=== PATIENT | female | born 1990 | race Caucasian/White ===

== ENCOUNTER 2016-04-12 02:40 | Emergency (ER) | payer OTHER ==
[2016-04-12] MEDS ORDERED: ONDANSETRON 4MG/2ML VIAL (J2405) As Ordered ONE (03:12)
[2016-04-12 03:16] LABS: CONTROL LINE HCG INT CTR LINE PRESENT
[2016-04-12 03:24] LABS: ALBUMIN 3.5 GM/DL (3.2-5.2); ALBUMIN/GLOBULIN RATIO 0.88 (1.00-1.93); ALKALINE PHOSPHATASE 95 U/L (45-117); ALT/SGPT 15 U/L (12-78); ANION GAP 10 MEQ/L (8-16); AST/SGOT 10 U/L (15-37); BILIRUBIN,DIRECT < 0.1 MG/DL (0.0-0.2); BILIRUBIN,TOTAL 0.5 MG/DL (0.2-1.0); BLOOD UREA NITROGEN 11 MG/DL (7-18); CALCIUM LEVEL 8.5 MG/DL (8.5-10.1); CARBON DIOXIDE LEVEL 25 MEQ/L (21-32); CHLORIDE LEVEL 106 MEQ/L (98-107); CREATININE FOR GFR 0.77 MG/DL (0.55-1.02); GLOMERULAR FILTRATION RATE > 60.0 (>60); GLUCOSE, FASTING 145 MG/DL (70-105); POTASSIUM SERUM 3.4 MEQ/L (3.5-5.1); SODIUM LEVEL 141 MEQ/L (136-145); TOTAL PROTEIN 7.5 GM/DL (6.4-8.2)
[2016-04-12 03:37] LABS: BASO % 0.3 % (0.0-1.0); EOS # 0.2 K/mm3 (0.0-0.50); EOS % 1.2 % (0.0-3.0); LARGE UNSTAINED CELL # 0.2 K/mm3 (0.0-0.4); LARGE UNSTAINED CELL % 1.4 % (0.0-4.0); LYMPH # 2.5 K/mm3 (1.5-6.5); LYMPH % 18.8 % (24.0-44.0); MEAN CORPUSCULAR HEMOGLOBIN 28.4 pg (27.0-33.0); MEAN CORPUSCULAR HGB CONC 32.6 g/dl (32.0-36.5); MEAN CORPUSCULAR VOLUME 87.1 fl (80.0-96.0); MONO # 0.7 K/mm3 (0.0-0.8); MONO % 5.5 % (0.0-5.0); NEUTROPHILS # 9.1 K/mm3 (1.8-7.7); NEUTROPHILS % 72.9 % (36.0-66.0); PLATELET COUNT, AUTOMATED 288 k/mm3 (150-450); WHITE BLOOD COUNT 12.4 K/mm3 (4.0-10.0)
[2016-04-12] MEDS ORDERED: POTASSIUM CHL PWD 20 MEQ PACKET As Ordered ONE (06:00)
--- NOTE | 2016-04-12 06:00 | REPUSA ---
CLINICAL HISTORY: Abdominal pain. TECHNIQUE: Multiple axial, sagittal and coronal CT images were obtained through the abdomen and pelvi s without administration of oral or IV contrast material. COMMENTS: The liver is of uniform attenuation without mass or defect. There is no intra or extrahepatic biliary ductal dilatation. The spleen is normal. The gallbladder is within normal limits. The pancreas is of normal contour and attenuation characteristics. There is no evidence of adrenal mass. Nonobstructing renal stones with the largest measuring 3 mm. Within stomach. Fluid-filled bowels. The kidneys are normal in size, shape and configuration. No ureteral calculi are identified. There is no hydroureter or hydronephrosis. There is no evidence for appendicitis. There is no bowel wall thickening. No evidence for small or la rge bowel obstruction. There is no evidence of abdominal ascites or lymphadenopathy. There is no evidence of intrinsic or extrinsic bladder mass. There is no pelvic ascites or lymphadeno lucero. Diffuse thickening of the bladder. Images of the lung bases show no evidence of pleural or parenchymal mass. There are no pleural effusi ons. The bony structures are free of lytic or blastic lesions. IMPRESSION: Nonobstructing renal stones. Ileus versus gastroenteritis. Fluid-filled stomach and small bowels. Thickened bladder. Thank you for your kind referral of this patient.
--- NOTE | 2016-04-12 07:13 | EDDOCDS ---
Nurse's Notes [facility] Name: Zahida Orlando Age: 25 yrs Sex: Female : 1990 Arrival Date: 04/12/2016 Time: 02:40 Bed 15 Private MD: Jordi Barbosa Diagnosis: Nausea and vomiting;Diarrhea, unspecified Presentation: 04/12 02:45 Presenting complaint: Patient states: "I think I got sick in the chicken I ate at work cf2 yesterday". Patient with complaint of fever, nausea, vomiting, diarrhea, and suprapubic pain since yesterday. Presenting complaint: EMS states: Stable transport with complaint of nausea and vomiting. Risk factors: the patient reports no vaginal bleeding. Adult Sepsis Screening: The patient does not have new or worsening altered mentation. Patient's respiratory rate is less than 22. Systolic blood pressure is greater than 100. Patient has a qSOFA score of 0- Negative Sepsis Screen. Suicide/Homicide risk assessment- the patient denies having any suicidal and/or homicidal ideations and does not present with any other emotional, behavioral or mental health complaints. 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 Transition of care: patient was not received from another setting of care. 02:45 Acuity: EDWIGE Level 3 cf2 02:45 Method Of Arrival: Ambulance cf2 Triage Assessment: 02:48 General: Appears ill, uncomfortable, Behavior is appropriate for age, cooperative, cf2 Reports fever for 12-24 hours. Pain: Location: abdomen. Pt Declines HIV testing. The patient is triaged at the bedside. See Assessment in Nurses Notes section of ED record. Neurological: No deficits noted. EENT: No deficits noted. Cardiovascular: No deficits noted. Respiratory: No deficits noted. GI: Abdomen is flat, non- distended Bowel sounds present X 4 quads. Abd is soft Abd is tender to palpation in suprapubic area, right lower quadrant and left lower quadrant Reports diarrhea, nausea, vomiting, intolerance of food. : No deficits noted. Denies burning with urination. Derm: Skin is clammy, Skin is pale. Musculoskeletal: No deficits noted. Injury Description: No known injury. 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 Claritin 10 mg Oral tab 1 tab once daily 2. Singulair 10 mg Oral tab 1 tab once daily - PMHx: Seasonal Allergies; vasovagal syncope; - PSHx: Tubal ligation; - Social history: Smoking status: Patient states was never smoker of tobacco. Patient/guardian denies using alcohol, street drugs, IV drugs, Race: White, Ethnicity: Not or No barriers to communication noted, The patient speaks fluent [place] African, Speaks appropriately for age, Preferred Language: South African. - Family history: Not pertinent. - : The pt / caregiver states he / she is not on anticoagulants. Home medication list is obtained from the patient. - Exposure Risk Screening:: None identified. Screenin:52 Screening information is obtained from the patient. Fall risk: No risks identified. cf2 Assistance ADL's: requires no assistance with activities of daily living. Abuse/DV Screen: The patient / caregiver reports he/she is: not in a situation that causes fear, pain or injury. Nutritional screening: No deficits noted. Advance Directives: Further advance directive information is declined. home support is adequate. Assessment: 02:52 General: See triage note. GI: Abdomen is flat, non- distended Bowel sounds present X 4 cf2 quads. Abd is soft Abd is tender to palpation in suprapubic area, right lower quadrant and left lower quadrant. Vital Signs: 02:48 BP 126 / 69; Pulse 101; Resp 16; Temp 96.2; Pulse Ox 97% on R/A; Weight 90.72 kg; cf2 Height 5 ft. 4 in. (162.56 cm); Pain 7/10; 07:09 BP 122 / 61; Pulse 88; Resp 16; Temp 98.0; Pulse Ox 99% on R/A; Pain 3/10; cf2 02:48 Body Mass Index 34.33 (90.72 kg, 162.56 cm) cf2 Vitals: 02:48 Log In Time N/A - ambulance arrival. cf2 ED Course: 02:40 Patient visited by Paul Whalen PCA. kb5 02:40 Patient moved to Waiting kb5 02:41 Iris Wheatley,LEIF is Primary Nurse. kb5 02:41 Jordi Barbosa is Private Physician. kb5 02:41 Patient moved to 15 kb5 02:45 Primary Nurse role handed off by Iris Wheatley RN cf2 02:45 Asia Lopez,LEIF is Primary Nurse. cf2 02:45 Patient visited by Asia Lopez RN. cf2 02:48 Triage Initiated cf2 02:52 The patient / caregiver is instructed regarding the plan of care and ED course. Patient cf2 has correct armband on for positive identification. Placed in gown. Bed in low position. Call light in reach. Side rails up X 1. Side rails up X2. Door closed. Noise minimized. Visitors limited. Lights dimmed. Moved to private room. Head of bed elevated. Diet: Patient is NPO. 02:53 Inserted saline lock: 20 gauge in left antecubital area and blood collected. The kas2 patient tolerated the procedure well. No procedures done that require assistance. 02:56 Mikel Hansen MD is Attending Physician. br1 02:56 Patient visited by Asia Lopez RN. cf2 03:01 Patient visited by Mikel Hansen MD. br1 03:03 Patient visited by Asia Lopez RN. cf2 03:38 Patient visited by Asia Lopez RN. cf2 03:58 Patient visited by Asia Lopez RN. cf2 04:46 [facility] Payment Agreement was scanned into [employer] and attached to record. hs2 04:48 Patient name changed from Zahida\\S\\Mia\\S\\[place]\\S\\ to Azhida\\S\\Cecille\\S\\Johanny. EDMS 04:54 Patient visited by Asia Lopez RN. cf2 05:32 Patient visited by Asia Lopez RN. cf2 05:58 Patient visited by Asia Lopez RN. cf2 05:58 Patient visited by Asia Lopez RN. cf2 06:05 CT ABD & PELVIS: No Contrast Returned. EDMS 06:41 Patient visited by Asia Lopez RN. cf2 06:45 Patient visited by Asia Lopez RN. cf2 06:45 Diet: Patient given water. Tolerated well. cf2 06:52 Patient visited by Mikel Hansen MD. br1 06:54 Jordi Barbosa is Referral Physician. br1 07:03 Marta Diaz, RN is Primary Nurse. jc4 07:05 Susana Zamarripa,LEIF is Primary Nurse. ja5 07:09 Patient visited by Asia Lopez,LEIF. cf2 07:11 Discontinued lock. cf2 Administered Medications: 03:17 Drug: NS 0.9% 1000 ml [sodium chloride 0.9 % intravenous solution] Route: IV; Rate: cf2 bolus; Site: left antecubital; 07:10 Follow up: Response: Pain is decreased cf2 03:18 Drug: Ondansetron 4 mg [ondansetron HCl 2 mg/mL intravenous solution (2 mL)] Route: cf2 IVP; Site: left antecubital; 07:10 Follow up: Response: Pain is decreased cf2 05:33 Drug: Potassium Chloride 20 mEq [potassium chloride ER 10 mEq tablet,extended release cf2 (2 tabs)] Route: PO; 07:10 Follow up: Response: No significant change. cf2 Order Results: Lab Order: CBC with Diff; SPEC'M 04/12/16 02:52 Test: WHITE BLOOD COUNT; Value: 12.4; Range: 4.0-10.0; Abnormal: Above high normal; Units: K/mm3; Status: F Test: RED BLOOD COUNT; Value: 4.57; Range: 4.00-5.40; Units: M/mm3; Status: F Test: HEMOGLOBIN; Value: 13.0; Range: 12.0-16.0; Units: g/dl; Status: F Test: HEMATOCRIT; Value: 39.9; Range: 36.0-47.0; Units: %; Status: F Test: MEAN CORPUSCULAR VOLUME; Value: 87.1; Range: 80.0-96.0; Units: fl; Status: F Test: MEAN CORPUSCULAR HEMOGLOBIN; Value: 28.4; Range: 27.0-33.0; Units: pg; Status: F Test: MEAN CORPUSCULAR HGB CONC; Value: 32.6; Range: 32.0-36.5; Units: g/dl; Status: F Test: RED CELL DISTRIBUTION WIDTH; Value: 13.0; Range: 11.5-14.5; Units: %; Status: F Test: PLATELET COUNT, AUTOMATED; Value: 288; Range: 150-450; Units: k/mm3; Status: F Test: NEUTROPHILS %; Value: 72.9; Range: 36.0-66.0; Abnormal: Above high normal; Units: %; Status: F Test: LYMPH %; Value: 18.8; Range: 24.0-44.0; Abnormal: Below low normal; Units: %; Status: F Test: MONO %; Value: 5.5; Range: 0.0-5.0; Abnormal: Above high normal; Units: %; Status: F Test: EOS %; Value: 1.2; Range: 0.0-3.0; Units: %; Status: F Test: BASO %; Value: 0.3; Range: 0.0-1.0; Units: %; Status: F Test: LARGE UNSTAINED CELL %; Value: 1.4; Range: 0.0-4.0; Units: %; Status: F Test: NEUTROPHILS #; Value: 9.1; Range: 1.8-7.7; Abnormal: Above high normal; Units: K/mm3; Status: F Test: LYMPH #; Value: 2.5; Range: 1.5-6.5; Units: K/mm3; Status: F Test: MONO #; Value: 0.7; Range: 0.0-0.8; Units: K/mm3; Status: F Test: EOS #; Value: 0.2; Range: 0.0-0.50; Units: K/mm3; Status: F Test: BASO #; Value: 0.0; Range: 0.0-0.2; Units: K/mm3; Status: F Test: LARGE UNSTAINED CELL #; Value: 0.2; Range: 0.0-0.4; Units: K/mm3; Status: F Lab Order: [facility]; SPEC'M 04/12/16 02:52 Test: GLUCOSE, FASTING; Value: 145; Range: 70-105; Abnormal: Above high normal; Units: MG/DL; Status: F Test: BLOOD UREA NITROGEN; Value: 11; Range: 7-18; Units: MG/DL; Status: F Test: CREATININE FOR GFR; Value: 0.77; Range: 0.55-1.02; Units: MG/DL; Status: F Test: SODIUM LEVEL; Range: 136-145; Units: MEQ/L; Status: I Test: POTASSIUM SERUM; Range: 3.5-5.1; Units: MEQ/L; Status: I Test: CHLORIDE LEVEL; Range: 98-107; Units: MEQ/L; Status: I Test: CARBON DIOXIDE LEVEL; Range: 21-32; Units: MEQ/L; Status: I Test: ANION GAP; Range: 8-16; Units: MEQ/L; Status: I Test: CALCIUM LEVEL; Range: 8.5-10.1; Units: MG/DL; Status: I Test: GLOMERULAR FILTRATION RATE; Value: > 60.0; Range: >60; Status: F Test: SODIUM LEVEL; Value: 141; Range: 136-145; Units: MEQ/L; Status: F Test: POTASSIUM SERUM; Value: 3.4; Range: 3.5-5.1; Abnormal: Below low normal; Units: MEQ/L; Status: F Test: CHLORIDE LEVEL; Value: 106; Range: 98-107; Units: MEQ/L; Status: F Test: CARBON DIOXIDE LEVEL; Value: 25; Range: 21-32; Units: MEQ/L; Status: F Test: ANION GAP; Value: 10; Range: 8-16; Units: MEQ/L; Status: F Test: CALCIUM LEVEL; Value: 8.5; Range: 8.5-10.1; Units: MG/DL; Status: F Test Note: ; Units are mL/min/1.73 m2 Chronic Kidney Disease Staging per NKF: Stage I & II GFR >=60 Normal to Mildly Decreased Stage III GFR 30-59 Moderately Decreased Stage IV GFR 15-29 Severely Decreased Stage V GFR <15 Very Little GFR Left ESRD GFR <15 on MACHINE WELDER Lab Order: Liver Profile; SPEC04/12/16 02:52 Test: AST/SGOT; Value: 10; Range: 15-37; Abnormal: Below low normal; Units: U/L; Status: F Test: ALT/SGPT; Value: 15; Range: 12-78; Units: U/L; Status: F Test: ALKALINE PHOSPHATASE; Value: 95; Range: 45-117; Units: U/L; Status: F Test: BILIRUBIN,TOTAL; Value: 0.5; Range: 0.2-1.0; Units: MG/DL; Status: F Test: BILIRUBIN,DIRECT; Value: < 0.1; Range: 0.0-0.2; Units: MG/DL; Status: F Test: TOTAL PROTEIN; Value: 7.5; Range: 6.4-8.2; Units: GM/DL; Status: F Test: ALBUMIN; Value: 3.5; Range: 3.2-5.2; Units: GM/DL; Status: F Test: ALBUMIN/GLOBULIN RATIO; Value: 0.88; Range: 1.00-1.93; Abnormal: Below low normal; Status: F Lab Order: Lipase; SPEC'M 04/12/16 02:52 Test: LIPASE; Value: 168; Range: 73-393; Units: U/L; Status: F Lab Order: HCG,Serum Qualitative; SPEC'M 04/12/16 02:52 Test: HCG, SERUM QUALITATIVE; Value: NEGATIVE; Range: NEGATIVE; Status: F Radiology Order: CT ABD & PELVIS: No Contrast Test: CT ABD & PELVIS: No Contrast REASON FOR EXAMINATION: bilateral low quadrant abd pain; ; CLINICAL HISTORY: Abdominal pain.; TECHNIQUE: Multiple axial, sagittal and coronal CT images were obtained through the abdomen and pelvi; s without administration of oral or IV contrast material.; COMMENTS:; The liver is of uniform attenuation without mass or defect. There is no intra or extrahepatic biliary; ductal dilatation. The spleen is normal. The gallbladder is within normal limits. The pancreas is of; normal contour and attenuation characteristics. There is no evidence of adrenal mass.; Nonobstructing renal stones with the largest measuring 3 mm. Within stomach. Fluid-filled bowels.; The kidneys are normal in size, shape and configuration. No ureteral calculi are identified. There is; no hydroureter or hydronephrosis.; There is no evidence for appendicitis. There is no bowel wall thickening. No evidence for small or la; rge bowel obstruction. There is no evidence of abdominal ascites or lymphadenopathy.; There is no evidence of intrinsic or extrinsic bladder mass. There is no pelvic ascites or lymphadeno; lucero. Diffuse thickening of the bladder.; Images of the lung bases show no evidence of pleural or parenchymal mass. There are no pleural effusi; ons.; The bony structures are free of lytic or blastic lesions.; IMPRESSION:; Nonobstructing renal stones.; Ileus versus gastroenteritis.; Fluid-filled stomach and small bowels.; Thickened bladder.; Thank you for your kind referral of this patient.; ; Outcome: 06:45 CT Study completed. Property :Personal belongings accompany Pt. cf2 06:54 Discharge ordered by Provider. br1 07:11 Discharge Assessment: Patient awake, alert and oriented x 3. No cognitive and/or cf2 functional deficits noted. Patient verbalized understanding of disposition instructions. Patient awake and alert. Oriented to person, place and time. patient administered narcotics - no. The following High Risk Discharge criteria are identified: None. Discharged to home ambulatory. Condition: stable Condition: improved. Discharge instructions given to patient, Instructed on discharge instructions, follow up and referral plans. medication usage, Demonstrated understanding of instructions, medications, Pt was receptive of discharge instructions/ teaching. Prescriptions given X 1. 07:12 Patient left the ED. cf2 Signatures: Dispatcher [employer] EDMS Paul Whalen, SOA ENGINEER SOA ENGINEER kb5 Mikel Hansen MD MD br1 Marta Diaz, RN RN jc4 Ratna Remy, Sanchez Reg hs2 Amie Rosas,RN RN kas2 Asia Lopez RN RN cf2 Susana Zamarripa,RN RN ja5 MTDD
--- NOTE | 2016-04-12 07:13 | EDDOCDS ---
Physician Documentation Name: Zahida Orlando Age: 25 yrs Sex: Female : 1990 Arrival Date: 04/12/2016 Time: 02:40 Bed 15 Private MD: Jordi Barbosa Disposition: 04/12/16 06:54 Discharged to Home/Self Care. Impression: Nausea and vomiting, Diarrhea, unspecified. - Condition is Stable. - Discharge Instructions: Diarrhea, Nausea and Vomiting. - Prescriptions for ZOFRAN ODT 4 mg - dissolve 1 tablet by ORAL route 4 times per day As needed do not chew, do not swallow whole; 10 tablet. - Medication Reconciliation, Work Release Form - 2 day, Local Pharmacy Hours form. - Follow up: Jordi Barbosa; When: 2 - 3 days; Reason: Recheck today's complaints. - Problem is new. - Symptoms have improved. - Notes: You were seen in the ED for nausea, vomiting and diarrhea concerning for a gastroenteritis or viral illness. CT scan was consistent with this, and also showed nonbstructing kidney stones and a thickened bladder, for which you may see Dr. Barbosa for recheck. Please call his office today to arrange to be seen. You may take Zofran as needed for nausea and may encourage clear liquids for fluids. Once tolerating your fluids, advance the diet as tolerated. Return to the ED for any worsening abdominal pain, fever, inability to tolerate oral foods or liquids or any other concerns. Historical: - Allergies: Cytotec (tachycardia); Latex (Rash); - Home Meds: 1. Claritin 10 mg Oral tab 1 tab once daily 2. Singulair 10 mg Oral tab 1 tab once daily - PMHx: Seasonal Allergies; vasovagal syncope; - PSHx: Tubal ligation; - Social history: Smoking status: Patient states was never smoker of tobacco. Patient/guardian denies using alcohol, street drugs, IV drugs, Race: White, Ethnicity: Not or No barriers to communication noted, The patient speaks fluent Dutch, Speaks appropriately for age, Preferred Language: Dutch. - Family history: Not pertinent. - : The pt / caregiver states he / she is not on anticoagulants. Home medication list is obtained from the patient. - Exposure Risk Screening:: None identified. 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 4 in. (162.56 cm); Pain 7/10; 07:09 BP 122 / 61; Pulse 88; Resp 16; Temp 98.0; Pulse Ox 99% on R/A; Pain 3/10; cf2 02:48 Body Mass Index 34.33 (90.72 kg, 162.56 cm) cf2 MDM: 03:03 IV Saline Lock ordered. br1 03:03 NS 0.9% 1000 ml IV at bolus once ordered. br1 03:03 Ondansetron 4 mg IVP once ordered. br1 03:04 CBC with Diff Ordered. EDMS 03:04 BMP Ordered. EDMS 03:04 Liver Profile Ordered. EDMS 03:04 Lipase Ordered. EDMS 03:04 HCG,Serum Qualitative Ordered. EDMS 03:33 BMP Reviewed. br1 03:33 Liver Profile Reviewed. br1 03:33 Lipase Reviewed. br1 03:33 HCG,Serum Qualitative Reviewed. br1 03:34 Potassium Chloride Extended Release Tablet 20 mEq PO once ordered. br1 03:35 CT ABD & PELVIS: No Contrast Ordered. EDMS 03:49 CBC with Diff Reviewed. br1 04:41 Financial registration complete. hs2 04:46 [facility] Payment Agreement was scanned into [employer] and attached to record. hs2 Administered Medications: 03:17 Drug: NS 0.9% 1000 ml [sodium chloride 0.9 % intravenous solution] Route: IV; Rate: cf2 bolus; Site: left antecubital; 07:10 Follow up: Response: Pain is decreased cf2 03:18 Drug: Ondansetron 4 mg [ondansetron HCl 2 mg/mL intravenous solution (2 mL)] Route: cf2 IVP; Site: left antecubital; 07:10 Follow up: Response: Pain is decreased cf2 05:33 Drug: Potassium Chloride 20 mEq [potassium chloride ER 10 mEq tablet,extended release cf2 (2 tabs)] Route: PO; 07:10 Follow up: Response: No significant change. cf2 Signatures: Dispatcher [employer] EDMikel Marin MD MD br1 Ratna Remy, Reg Reg hs2 Asia LopezRN RN cf2 The chart was reviewed and I authenticate all verbal orders and agree with the evaluation and treatment provided.Attachments: 04:46 [facility] Payment Agreement hs2 MTDD
--- NOTE | 2016-04-14 08:13 | EDDOCDS ---
Nurse's Notes [facility] Name: Zahida Orlando Age: 25 yrs Sex: Female : 1990 Arrival Date: 04/12/2016 Time: 02:40 Bed 15 Private MD: Jordi Barbosa Diagnosis: Nausea and vomiting;Diarrhea, unspecified Presentation: 04/12 02:45 Presenting complaint: Patient states: "I think I got sick in the chicken I ate at work cf2 yesterday". Patient with complaint of fever, nausea, vomiting, diarrhea, and suprapubic pain since yesterday. Presenting complaint: EMS states: Stable transport with complaint of nausea and vomiting. Risk factors: the patient reports no vaginal bleeding. Adult Sepsis Screening: The patient does not have new or worsening altered mentation. Patient's respiratory rate is less than 22. Systolic blood pressure is greater than 100. Patient has a qSOFA score of 0- Negative Sepsis Screen. Suicide/Homicide risk assessment- the patient denies having any suicidal and/or homicidal ideations and does not present with any other emotional, behavioral or mental health complaints. Status: Patient is not a client services specialist or dependent. Transition of care: patient was not received from another setting of care. 02:45 Acuity: EDWIGE Level 3 cf2 02:45 Method Of Arrival: Ambulance cf2 Triage Assessment: 02:48 General: Appears ill, uncomfortable, Behavior is appropriate for age, cooperative, cf2 Reports fever for 12-24 hours. Pain: Location: abdomen. Pt Declines HIV testing. The patient is triaged at the bedside. See Assessment in Nurses Notes section of ED record. Neurological: No deficits noted. EENT: No deficits noted. Cardiovascular: No deficits noted. Respiratory: No deficits noted. GI: Abdomen is flat, non- distended Bowel sounds present X 4 quads. Abd is soft Abd is tender to palpation in suprapubic area, right lower quadrant and left lower quadrant Reports diarrhea, nausea, vomiting, intolerance of food. : No deficits noted. Denies burning with urination. Derm: Skin is clammy, Skin is pale. Musculoskeletal: No deficits noted. Injury Description: No known injury. 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 Claritin 10 mg Oral tab 1 tab once daily 2. Singulair 10 mg Oral tab 1 tab once daily - PMHx: Seasonal Allergies; vasovagal syncope; - PSHx: Tubal ligation; - Social history: Smoking status: Patient states was never smoker of tobacco. Patient/guardian denies using alcohol, street drugs, IV drugs, Race: White, Ethnicity: Not or No barriers to communication noted, The patient speaks fluent Hong Konger, Speaks appropriately for age, Preferred Language: Hong Konger. - Family history: Not pertinent. - : The pt / caregiver states he / she is not on anticoagulants. Home medication list is obtained from the patient. - Exposure Risk Screening:: None identified. Screenin:52 Screening information is obtained from the patient. Fall risk: No risks identified. cf2 Assistance ADL's: requires no assistance with activities of daily living. Abuse/DV Screen: The patient / caregiver reports he/she is: not in a situation that causes fear, pain or injury. Nutritional screening: No deficits noted. Advance Directives: Further advance directive information is declined. home support is adequate. Assessment: 02:52 General: See triage note. GI: Abdomen is flat, non- distended Bowel sounds present X 4 cf2 quads. Abd is soft Abd is tender to palpation in suprapubic area, right lower quadrant and left lower quadrant. Vital Signs: 02:48 BP 126 / 69; Pulse 101; Resp 16; Temp 96.2; Pulse Ox 97% on R/A; Weight 90.72 kg; cf2 Height 5 ft. 4 in. (162.56 cm); Pain 7/10; 07:09 BP 122 / 61; Pulse 88; Resp 16; Temp 98.0; Pulse Ox 99% on R/A; Pain 3/10; cf2 02:48 Body Mass Index 34.33 (90.72 kg, 162.56 cm) cf2 Vitals: 02:48 Log In Time N/A - ambulance arrival. cf2 ED Course: 02:40 Patient visited by Paul Whalen PCA. kb5 02:40 Patient moved to Waiting kb5 02:41 Iris Wheatley,LEIF is Primary Nurse. kb5 02:41 Jordi Barbosa is Private Physician. kb5 02:41 Patient moved to 15 kb5 02:45 Primary Nurse role handed off by Iris Wheatley RN cf2 02:45 Asia Lopez,LEIF is Primary Nurse. cf2 02:45 Patient visited by Asia Lopez RN. cf2 02:48 Triage Initiated cf2 02:52 The patient / caregiver is instructed regarding the plan of care and ED course. Patient cf2 has correct armband on for positive identification. Placed in gown. Bed in low position. Call light in reach. Side rails up X 1. Side rails up X2. Door closed. Noise minimized. Visitors limited. Lights dimmed. Moved to private room. Head of bed elevated. Diet: Patient is NPO. 02:53 Inserted saline lock: 20 gauge in left antecubital area and blood collected. The kas2 patient tolerated the procedure well. No procedures done that require assistance. 02:56 Mikel Hansen MD is Attending Physician. br1 02:56 Patient visited by Asia Lopez RN. cf2 03:01 Patient visited by Mikel Hansen MD. br1 03:03 Patient visited by Asia Lopez RN. cf2 03:38 Patient visited by Asia Lopez RN. cf2 03:58 Patient visited by Asia Lopez RN. cf2 04:46 [facility] Payment Agreement was scanned into [employer] and attached to record. hs2 04:48 Patient name changed from Zahida\\S\\Mia\\S\\Creole\\S\\ to Zahida\\S\\Cecille\\S\\Johanny. EDMS 04:54 Patient visited by Asia Lopez RN. cf2 05:32 Patient visited by Asia Lopez RN. cf2 05:58 Patient visited by Asia Lopez RN. cf2 05:58 Patient visited by Asia Lopez RN. cf2 06:05 CT ABD & PELVIS: No Contrast Returned. EDMS 06:41 Patient visited by Asia Lopez RN. cf2 06:45 Patient visited by Asia Lopez RN. cf2 06:45 Diet: Patient given water. Tolerated well. cf2 06:52 Patient visited by Mikel Hansen MD. br1 06:54 Jordi Barbosa is Referral Physician. br1 07:03 Marta Diaz, RN is Primary Nurse. jc4 07:05 Susana Zamarripa,LEIF is Primary Nurse. ja5 07:09 Patient visited by Aisa Lopez,LEIF. cf2 07:11 Discontinued lock. cf2 Administered Medications: 03:17 Drug: NS 0.9% 1000 ml [sodium chloride 0.9 % intravenous solution] Route: IV; Rate: cf2 bolus; Site: left antecubital; 07:10 Follow up: Response: Pain is decreased cf2 03:18 Drug: Ondansetron 4 mg [ondansetron HCl 2 mg/mL intravenous solution (2 mL)] Route: cf2 IVP; Site: left antecubital; 07:10 Follow up: Response: Pain is decreased cf2 05:33 Drug: Potassium Chloride 20 mEq [potassium chloride ER 10 mEq tablet,extended release cf2 (2 tabs)] Route: PO; 07:10 Follow up: Response: No significant change. cf2 Order Results: Lab Order: CBC with Diff; SPEC'M 04/12/16 02:52 Test: WHITE BLOOD COUNT; Value: 12.4; Range: 4.0-10.0; Abnormal: Above high normal; Units: K/mm3; Status: F Test: RED BLOOD COUNT; Value: 4.57; Range: 4.00-5.40; Units: M/mm3; Status: F Test: HEMOGLOBIN; Value: 13.0; Range: 12.0-16.0; Units: g/dl; Status: F Test: HEMATOCRIT; Value: 39.9; Range: 36.0-47.0; Units: %; Status: F Test: MEAN CORPUSCULAR VOLUME; Value: 87.1; Range: 80.0-96.0; Units: fl; Status: F Test: MEAN CORPUSCULAR HEMOGLOBIN; Value: 28.4; Range: 27.0-33.0; Units: pg; Status: F Test: MEAN CORPUSCULAR HGB CONC; Value: 32.6; Range: 32.0-36.5; Units: g/dl; Status: F Test: RED CELL DISTRIBUTION WIDTH; Value: 13.0; Range: 11.5-14.5; Units: %; Status: F Test: PLATELET COUNT, AUTOMATED; Value: 288; Range: 150-450; Units: k/mm3; Status: F Test: NEUTROPHILS %; Value: 72.9; Range: 36.0-66.0; Abnormal: Above high normal; Units: %; Status: F Test: LYMPH %; Value: 18.8; Range: 24.0-44.0; Abnormal: Below low normal; Units: %; Status: F Test: MONO %; Value: 5.5; Range: 0.0-5.0; Abnormal: Above high normal; Units: %; Status: F Test: EOS %; Value: 1.2; Range: 0.0-3.0; Units: %; Status: F Test: BASO %; Value: 0.3; Range: 0.0-1.0; Units: %; Status: F Test: LARGE UNSTAINED CELL %; Value: 1.4; Range: 0.0-4.0; Units: %; Status: F Test: NEUTROPHILS #; Value: 9.1; Range: 1.8-7.7; Abnormal: Above high normal; Units: K/mm3; Status: F Test: LYMPH #; Value: 2.5; Range: 1.5-6.5; Units: K/mm3; Status: F Test: MONO #; Value: 0.7; Range: 0.0-0.8; Units: K/mm3; Status: F Test: EOS #; Value: 0.2; Range: 0.0-0.50; Units: K/mm3; Status: F Test: BASO #; Value: 0.0; Range: 0.0-0.2; Units: K/mm3; Status: F Test: LARGE UNSTAINED CELL #; Value: 0.2; Range: 0.0-0.4; Units: K/mm3; Status: F Lab Order: [facility]; SPEC'M 04/12/16 02:52 Test: GLUCOSE, FASTING; Value: 145; Range: 70-105; Abnormal: Above high normal; Units: MG/DL; Status: F Test: BLOOD UREA NITROGEN; Value: 11; Range: 7-18; Units: MG/DL; Status: F Test: CREATININE FOR GFR; Value: 0.77; Range: 0.55-1.02; Units: MG/DL; Status: F Test: SODIUM LEVEL; Range: 136-145; Units: MEQ/L; Status: I Test: POTASSIUM SERUM; Range: 3.5-5.1; Units: MEQ/L; Status: I Test: CHLORIDE LEVEL; Range: 98-107; Units: MEQ/L; Status: I Test: CARBON DIOXIDE LEVEL; Range: 21-32; Units: MEQ/L; Status: I Test: ANION GAP; Range: 8-16; Units: MEQ/L; Status: I Test: CALCIUM LEVEL; Range: 8.5-10.1; Units: MG/DL; Status: I Test: GLOMERULAR FILTRATION RATE; Value: > 60.0; Range: >60; Status: F Test: SODIUM LEVEL; Value: 141; Range: 136-145; Units: MEQ/L; Status: F Test: POTASSIUM SERUM; Value: 3.4; Range: 3.5-5.1; Abnormal: Below low normal; Units: MEQ/L; Status: F Test: CHLORIDE LEVEL; Value: 106; Range: 98-107; Units: MEQ/L; Status: F Test: CARBON DIOXIDE LEVEL; Value: 25; Range: 21-32; Units: MEQ/L; Status: F Test: ANION GAP; Value: 10; Range: 8-16; Units: MEQ/L; Status: F Test: CALCIUM LEVEL; Value: 8.5; Range: 8.5-10.1; Units: MG/DL; Status: F Test Note: ; Units are mL/min/1.73 m2 Chronic Kidney Disease Staging per NKF: Stage I & II GFR >=60 Normal to Mildly Decreased Stage III GFR 30-59 Moderately Decreased Stage IV GFR 15-29 Severely Decreased Stage V GFR <15 Very Little GFR Left ESRD GFR <15 on DOLL MAKER Lab Order: Liver Profile; SPEC04/12/16 02:52 Test: AST/SGOT; Value: 10; Range: 15-37; Abnormal: Below low normal; Units: U/L; Status: F Test: ALT/SGPT; Value: 15; Range: 12-78; Units: U/L; Status: F Test: ALKALINE PHOSPHATASE; Value: 95; Range: 45-117; Units: U/L; Status: F Test: BILIRUBIN,TOTAL; Value: 0.5; Range: 0.2-1.0; Units: MG/DL; Status: F Test: BILIRUBIN,DIRECT; Value: < 0.1; Range: 0.0-0.2; Units: MG/DL; Status: F Test: TOTAL PROTEIN; Value: 7.5; Range: 6.4-8.2; Units: GM/DL; Status: F Test: ALBUMIN; Value: 3.5; Range: 3.2-5.2; Units: GM/DL; Status: F Test: ALBUMIN/GLOBULIN RATIO; Value: 0.88; Range: 1.00-1.93; Abnormal: Below low normal; Status: F Lab Order: Lipase; SPEC'M 04/12/16 02:52 Test: LIPASE; Value: 168; Range: 73-393; Units: U/L; Status: F Lab Order: HCG,Serum Qualitative; SPEC'M 04/12/16 02:52 Test: HCG, SERUM QUALITATIVE; Value: NEGATIVE; Range: NEGATIVE; Status: F Radiology Order: CT ABD & PELVIS: No Contrast Test: CT ABD & PELVIS: No Contrast REASON FOR EXAMINATION: bilateral low quadrant abd pain; ; CLINICAL HISTORY: Abdominal pain.; TECHNIQUE: Multiple axial, sagittal and coronal CT images were obtained through the abdomen and pelvi; s without administration of oral or IV contrast material.; COMMENTS:; The liver is of uniform attenuation without mass or defect. There is no intra or extrahepatic biliary; ductal dilatation. The spleen is normal. The gallbladder is within normal limits. The pancreas is of; normal contour and attenuation characteristics. There is no evidence of adrenal mass.; Nonobstructing renal stones with the largest measuring 3 mm. Within stomach. Fluid-filled bowels.; The kidneys are normal in size, shape and configuration. No ureteral calculi are identified. There is; no hydroureter or hydronephrosis.; There is no evidence for appendicitis. There is no bowel wall thickening. No evidence for small or la; rge bowel obstruction. There is no evidence of abdominal ascites or lymphadenopathy.; There is no evidence of intrinsic or extrinsic bladder mass. There is no pelvic ascites or lymphadeno; lucero. Diffuse thickening of the bladder.; Images of the lung bases show no evidence of pleural or parenchymal mass. There are no pleural effusi; ons.; The bony structures are free of lytic or blastic lesions.; IMPRESSION:; Nonobstructing renal stones.; Ileus versus gastroenteritis.; Fluid-filled stomach and small bowels.; Thickened bladder.; Thank you for your kind referral of this patient.; ; Outcome: 06:45 CT Study completed. Property :Personal belongings accompany Pt. cf2 06:54 Discharge ordered by Provider. br1 07:11 Discharge Assessment: Patient awake, alert and oriented x 3. No cognitive and/or cf2 functional deficits noted. Patient verbalized understanding of disposition instructions. Patient awake and alert. Oriented to person, place and time. patient administered narcotics - no. The following High Risk Discharge criteria are identified: None. Discharged to home ambulatory. Condition: stable Condition: improved. Discharge instructions given to patient, Instructed on discharge instructions, follow up and referral plans. medication usage, Demonstrated understanding of instructions, medications, Pt was receptive of discharge instructions/ teaching. Prescriptions given X 1. 07:12 Patient left the ED. cf2 Signatures: Dispatcher [employer] EDMS Paul Whalen, PROVIDER NETWORK ANALYST PROVIDER NETWORK ANALYST kb5 Mikel Hansen MD MD br1 Marta Diaz, RN RN jc4 Ratna Remy, Reg Reg hs2 Amie Rosas,RN RN kas2 Asia Lopez RN RN cf2 Susana Zamarripa,RN RN ja5 Chart Complete MTDD
--- NOTE | 2016-04-14 08:13 | EDDOCDS ---
Physician Documentation [facility] Name: Zahida Orlando Age: 25 yrs Sex: Female : 1990 Arrival Date: 04/12/2016 Time: 02:40 Bed 15 Private MD: Jordi Barbosa Disposition: 04/12/16 06:54 Discharged to Home/Self Care. Impression: Nausea and vomiting, Diarrhea, unspecified. - Condition is Stable. - Discharge Instructions: Diarrhea, Nausea and Vomiting. - Prescriptions for ZOFRAN ODT 4 mg - dissolve 1 tablet by ORAL route 4 times per day As needed do not chew, do not swallow whole; 10 tablet. - Medication Reconciliation, Work Release Form - 2 day, Local Pharmacy Hours form. - Follow up: Jordi Barbosa; When: 2 - 3 days; Reason: Recheck today's complaints. - Problem is new. - Symptoms have improved. - Notes: You were seen in the ED for nausea, vomiting and diarrhea concerning for a gastroenteritis or viral illness. CT scan was consistent with this, and also showed nonbstructing kidney stones and a thickened bladder, for which you may see Dr. Barbosa for recheck. Please call his office today to arrange to be seen. You may take Zofran as needed for nausea and may encourage clear liquids for fluids. Once tolerating your fluids, advance the diet as tolerated. Return to the ED for any worsening abdominal pain, fever, inability to tolerate oral foods or liquids or any other concerns. Historical: - Allergies: Cytotec (tachycardia); Latex (Rash); - Home Meds: 1. Claritin 10 mg Oral tab 1 tab once daily 2. Singulair 10 mg Oral tab 1 tab once daily - PMHx: Seasonal Allergies; vasovagal syncope; - PSHx: Tubal ligation; - Social history: Smoking status: Patient states was never smoker of tobacco. Patient/guardian denies using alcohol, street drugs, IV drugs, Race: White, Ethnicity: Not or No barriers to communication noted, The patient speaks fluent [place], Speaks appropriately for age, Preferred Language: Citizen [place]. - Family history: Not pertinent. - : The pt / caregiver states he / she is not on anticoagulants. Home medication list is obtained from the patient. - Exposure Risk Screening:: None identified. 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 4 in. (162.56 cm); Pain 7/10; 07:09 BP 122 / 61; Pulse 88; Resp 16; Temp 98.0; Pulse Ox 99% on R/A; Pain 3/10; cf2 02:48 Body Mass Index 34.33 (90.72 kg, 162.56 cm) cf2 MDM: 03:03 IV Saline Lock ordered. br1 03:03 NS 0.9% 1000 ml IV at bolus once ordered. br1 03:03 Ondansetron 4 mg IVP once ordered. br1 03:04 CBC with Diff Ordered. EDMS 03:04 BMP Ordered. EDMS 03:04 Liver Profile Ordered. EDMS 03:04 Lipase Ordered. EDMS 03:04 HCG,Serum Qualitative Ordered. EDMS 03:33 BMP Reviewed. br1 03:33 Liver Profile Reviewed. br1 03:33 Lipase Reviewed. br1 03:33 HCG,Serum Qualitative Reviewed. br1 03:34 Potassium Chloride Extended Release Tablet 20 mEq PO once ordered. br1 03:35 CT ABD & PELVIS: No Contrast Ordered. EDMS 03:49 CBC with Diff Reviewed. br1 04:41 Financial registration complete. hs2 04:46 [facility] Payment Agreement was scanned into [employer] and attached to record. hs2 Administered Medications: 03:17 Drug: NS 0.9% 1000 ml [sodium chloride 0.9 % intravenous solution] Route: IV; Rate: cf2 bolus; Site: left antecubital; 07:10 Follow up: Response: Pain is decreased cf2 03:18 Drug: Ondansetron 4 mg [ondansetron HCl 2 mg/mL intravenous solution (2 mL)] Route: cf2 IVP; Site: left antecubital; 07:10 Follow up: Response: Pain is decreased cf2 05:33 Drug: Potassium Chloride 20 mEq [potassium chloride ER 10 mEq tablet,extended release cf2 (2 tabs)] Route: PO; 07:10 Follow up: Response: No significant change. cf2 Signatures: Dispatcher [employer] EDMikel Marin MD MD br1 Ratna Remy, Reg Reg hs2 Asia LopezRN RN cf2 The chart was reviewed and I authenticate all verbal orders and agree with the evaluation and treatment provided.Attachments: 04:46 [facility] Payment Agreement hs2 Chart Complete MTDD
--- NOTE | 2016-04-14 08:13 | EDDOCDS ---
Physician Documentation [facility] Name: Zahida Orlando Age: 25 yrs Sex: Female : 1990 Arrival Date: 04/12/2016 Time: 02:40 Bed 15 Private MD: Jordi Barbosa Disposition: 04/12/16 06:54 Discharged to Home/Self Care. Impression: Nausea and vomiting, Diarrhea, unspecified. - Condition is Stable. - Discharge Instructions: Diarrhea, Nausea and Vomiting. - Prescriptions for ZOFRAN ODT 4 mg - dissolve 1 tablet by ORAL route 4 times per day As needed do not chew, do not swallow whole; 10 tablet. - Medication Reconciliation, Work Release Form - 2 day, Local Pharmacy Hours form. - Follow up: Jordi Barbosa; When: 2 - 3 days; Reason: Recheck today's complaints. - Problem is new. - Symptoms have improved. - Notes: You were seen in the ED for nausea, vomiting and diarrhea concerning for a gastroenteritis or viral illness. CT scan was consistent with this, and also showed nonbstructing kidney stones and a thickened bladder, for which you may see Dr. Barbosa for recheck. Please call his office today to arrange to be seen. You may take Zofran as needed for nausea and may encourage clear liquids for fluids. Once tolerating your fluids, advance the diet as tolerated. Return to the ED for any worsening abdominal pain, fever, inability to tolerate oral foods or liquids or any other concerns. Historical: - Allergies: Cytotec (tachycardia); Latex (Rash); - Home Meds: 1. Claritin 10 mg Oral tab 1 tab once daily 2. Singulair 10 mg Oral tab 1 tab once daily - PMHx: Seasonal Allergies; vasovagal syncope; - PSHx: Tubal ligation; - Social history: Smoking status: Patient states was never smoker of tobacco. Patient/guardian denies using alcohol, street drugs, IV drugs, Race: White, Ethnicity: Not or No barriers to communication noted, The patient speaks fluent Icelandic, Speaks appropriately for age, Preferred Language: Icelandic. - Family history: Not pertinent. - : The pt / caregiver states he / she is not on anticoagulants. Home medication list is obtained from the patient. - Exposure Risk Screening:: None identified. 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 4 in. (162.56 cm); Pain 7/10; 07:09 BP 122 / 61; Pulse 88; Resp 16; Temp 98.0; Pulse Ox 99% on R/A; Pain 3/10; cf2 02:48 Body Mass Index 34.33 (90.72 kg, 162.56 cm) cf2 MDM: 03:03 IV Saline Lock ordered. br1 03:03 NS 0.9% 1000 ml IV at bolus once ordered. br1 03:03 Ondansetron 4 mg IVP once ordered. br1 03:04 CBC with Diff Ordered. EDMS 03:04 BMP Ordered. EDMS 03:04 Liver Profile Ordered. EDMS 03:04 Lipase Ordered. EDMS 03:04 HCG,Serum Qualitative Ordered. EDMS 03:33 BMP Reviewed. br1 03:33 Liver Profile Reviewed. br1 03:33 Lipase Reviewed. br1 03:33 HCG,Serum Qualitative Reviewed. br1 03:34 Potassium Chloride Extended Release Tablet 20 mEq PO once ordered. br1 03:35 CT ABD & PELVIS: No Contrast Ordered. EDMS 03:49 CBC with Diff Reviewed. br1 04:41 Financial registration complete. hs2 04:46 [facility] Payment Agreement was scanned into [employer] and attached to record. hs2 Administered Medications: 03:17 Drug: NS 0.9% 1000 ml [sodium chloride 0.9 % intravenous solution] Route: IV; Rate: cf2 bolus; Site: left antecubital; 07:10 Follow up: Response: Pain is decreased cf2 03:18 Drug: Ondansetron 4 mg [ondansetron HCl 2 mg/mL intravenous solution (2 mL)] Route: cf2 IVP; Site: left antecubital; 07:10 Follow up: Response: Pain is decreased cf2 05:33 Drug: Potassium Chloride 20 mEq [potassium chloride ER 10 mEq tablet,extended release cf2 (2 tabs)] Route: PO; 07:10 Follow up: Response: No significant change. cf2 Signatures: Dispatcher [employer] EDMikel Marin MD MD br1 Ratna Remy, Reg Reg hs2 Asia LopezRN RN cf2 The chart was reviewed and I authenticate all verbal orders and agree with the evaluation and treatment provided.Attachments: 04:46 [facility] Payment Agreement hs2 Chart Complete MTDD
== END 2016-04-12 07:12 | disposition home or self-care (01) ==
LOC: M ED 02:40
DX: R11.2 Nausea with vomiting, unspecified (principal); R19.7 Diarrhea, unspecified; K90.0 Celiac disease; Z86.69 Personal history of other diseases of the nervous system and sense organs; J30.2 Other seasonal allergic rhinitis; Z79.899 Other long term (current) drug therapy; Z91.040 Latex allergy status; Z88.8 Allergy status to other drugs, medicaments and biological substances

== ENCOUNTER 2016-05-04 14:24 | Emergency (ER) | payer OTHER ==
[~2016-05-04] VITALS: Ht 162.6 cm; Wt 90.7 kg
[2016-05-04] MEDS ORDERED: SING10TA32 PO (14:35)
[2016-05-04] MEDS ORDERED: CLAR10CA3 PO (14:35)
[2016-05-04 16:49] VITALS: BP 117/68
== END 2016-05-04 16:50 | disposition home or self-care (01) ==
LOC: M ED 16:35
DX: F41.9 Anxiety disorder, unspecified (principal); Z79.899 Other long term (current) drug therapy; Z88.8 Allergy status to other drugs, medicaments and biological substances

== ENCOUNTER 2016-07-14 12:48 | Emergency (ER) | payer OTHER ==
[~2016-07-14] VITALS: Ht 162.6 cm; Wt 90.7 kg
[2016-07-14 12:48] VITALS: BP 117/74
[~2016-07-14 12:48] MED LIST: CLAR10CA3 PO; SING10TA32 PO
[2016-07-14] MEDS ORDERED: DOXYCYCLINE HYCLATE 100 MG TAB PO ONE (13:15)
== END 2016-07-14 13:27 | disposition home or self-care (01) ==
LOC: M ED 13:17
DX: S90.562A Insect bite (nonvenomous), left ankle, initial encounter (principal); X58.XXXA Exposure to other specified factors, initial encounter; Y92.89 Other specified places as the place of occurrence of the external cause; Y93.89 Activity, other specified; Y99.8 Other external cause status; F99 Mental disorder, not otherwise specified; Z79.899 Other long term (current) drug therapy

== ENCOUNTER 2016-10-28 14:44 | Emergency (ER) | payer MEDICAID, OTHER ==
[~2016-10-28] VITALS: Ht 162.6 cm; Wt 91.0 kg
--- NOTE | 2016-10-28 19:20 | REPUSA ---
HISTORY: Right pelvic pain and question ovarian cyst and irregular menses. TECHNIQUE: Transabdominal and transvaginal pelvic ultrasound examination. FINDINGS: Uterus measures 9.3 x 5.2 x 5.2 cm. Endometrium measures 13.7 mm. No pathologic uterine i s seen. Right ovary measures 2.8 x 1.8 x 2.1 cm with normal Doppler vascularity and no pathologic mass seen. Left ovary measures 2.6 x 1.5 x 2.7 cm with normal Doppler vascularity and no pathologic mass seen. No extrauterine pathologic mass or abnormal fluid collection is seen in the pelvis. Urinary bladder is normal with no pathologic mass or bladder calculi seen. IMPRESSION: Negative pelvic ultrasound examination with no pathologic mass or abnormal fluid collecti on seen.
[2016-10-28 19:22] VITALS: BP 132/87
== END 2016-10-28 19:42 | disposition home or self-care (01) ==
LOC: M ED 14:44
DX: R10.2 Pelvic and perineal pain (principal)

== ENCOUNTER → 2016-11-09 | Outpatient (CLI) | payer SELFPAY ==
[2016-11-09 09:23] LABS: BASO % 0.6 % (0.0-1.0); EOS # 0.3 K/mm3 (0.0-0.50); LARGE UNSTAINED CELL # 0.2 K/mm3 (0.0-0.4); LARGE UNSTAINED CELL % 2.5 % (0.0-4.0); LYMPH # 2.2 K/mm3 (1.5-6.5); LYMPH % 33.6 % (24.0-44.0); MEAN CORPUSCULAR HEMOGLOBIN 29.8 pg (27.0-33.0); MEAN CORPUSCULAR HGB CONC 33.8 g/dl (32.0-36.5); MEAN CORPUSCULAR VOLUME 88.3 fl (80.0-96.0); MONO # 0.5 K/mm3 (0.0-0.8); MONO % 6.8 % (0.0-5.0); NEUTROPHILS # 3.4 K/mm3 (1.8-7.7); NEUTROPHILS % 51.5 % (36.0-66.0); PLATELET COUNT, AUTOMATED 308 k/mm3 (150-450); RED CELL DISTRIBUTION WIDTH 12.7 % (11.5-14.5); WHITE BLOOD COUNT 6.7 K/mm3 (4.0-10.0)
[2016-11-09 09:55] LABS: ALBUMIN 3.4 GM/DL (3.2-5.2); ALBUMIN/GLOBULIN RATIO 0.92 (1.00-1.93); ALKALINE PHOSPHATASE 88 U/L (45-117); ALT/SGPT 18 U/L (12-78); ANION GAP 6 MEQ/L (8-16); AST/SGOT 11 U/L (15-37); BILIRUBIN,TOTAL 0.3 MG/DL (0.2-1.0); BLOOD UREA NITROGEN 12 MG/DL (7-18); CALCIUM LEVEL 8.8 MG/DL (8.5-10.1); CARBON DIOXIDE LEVEL 27 MEQ/L (21-32); CHLORIDE LEVEL 110 MEQ/L (98-107); CHOLESTEROL LEVEL 133 MG/DL (<200); GLOMERULAR FILTRATION RATE > 60.0 (>60); GLUCOSE, FASTING 81 MG/DL (70-105); POTASSIUM SERUM 4.6 MEQ/L (3.5-5.1); SODIUM LEVEL 143 MEQ/L (136-145); TOTAL PROTEIN 7.1 GM/DL (6.4-8.2); TRIGLYCERIDES LEVEL 112 MG/DL (<150)
== END ==
LOC: M LAB 08:42
PROVIDERS: ATTEND Family Medicine Addiction Medicine
DX: R63.5 Abnormal weight gain (principal)

== ENCOUNTER → 2017-04-02 | Outpatient (REF) | payer OTHER, MEDICAID | LOC: M LAB REF 13:37 | DX: R30.0 Dysuria (principal) ==

== ENCOUNTER → 2017-05-24 | Outpatient (CLI) | payer OTHER ==
[2017-05-24 12:59] LABS: FREE T4 1.13 NG/DL (0.76-1.46)
[2017-05-25 10:12] LABS: THYROID PEROXIDASE ANTIBODY 62.3 U/ML (<60.0)
[2017-05-25 10:13] LABS: THYROGLOBULIN ANTIBODY 17.3 U/ML (<60.0)
[2017-05-26 00:08] LABS: THYROID STIMULATING IMMUNOGLOB <0.10 IU/L (0.00-0.55)
== END ==
LOC: M LAB 11:22
DX: E03.8 Other specified hypothyroidism (principal)
CPT/HCPCS: 84443

== ENCOUNTER 2017-06-30 08:08 | Emergency (ER) | payer OTHER ==
[2017-06-30] MEDS: AUGMENTIN 875 MG TAB PO (08:38)
== END 2017-06-30 08:40 | disposition home or self-care (01) ==
LOC: M ED 08:08
DX: H66.92 Otitis media, unspecified, left ear (principal); J06.9 Acute upper respiratory infection, unspecified; Z79.899 Other long term (current) drug therapy; Z88.8 Allergy status to other drugs, medicaments and biological substances
CPT/HCPCS: 99282

== ENCOUNTER → 2017-07-11 | Outpatient (CLI) | payer OTHER | LOC: M RAD 10:13 | DX: R05 Cough (principal) | CPT/HCPCS: 71046 ==

== ENCOUNTER 2017-07-20 10:30 | Emergency (ER) | payer OTHER | END 2017-07-20 12:14 | disposition home or self-care (01) | LOC: M ED 10:30 | DX: Z76.0 Encounter for issue of repeat prescription (principal); F33.9 Major depressive disorder, recurrent, unspecified; Z79.899 Other long term (current) drug therapy; Z88.8 Allergy status to other drugs, medicaments and biological substances | CPT/HCPCS: 99282 ==

== ENCOUNTER 2018-01-12 09:39 | Emergency (ER) | payer OTHER ==
[2018-01-12 10:48] LABS: ALBUMIN 3.3 GM/DL (3.2-5.2); ALBUMIN/GLOBULIN RATIO 0.73 (1.00-1.93); ALKALINE PHOSPHATASE 100 U/L (45-117); ALT/SGPT 28 U/L (12-78); AMYLASE 40 U/L (25-115); ANION GAP 5 MEQ/L (8-16); AST/SGOT 19 U/L (7-37); BILIRUBIN,DIRECT < 0.1 MG/DL (0.0-0.2); BILIRUBIN,TOTAL 0.2 MG/DL (0.2-1.0); BLOOD UREA NITROGEN 8 MG/DL (7-18); CARBON DIOXIDE LEVEL 28 MEQ/L (21-32); CHLORIDE LEVEL 105 MEQ/L (98-107); CREATININE FOR GFR 0.88 MG/DL (0.55-1.30); GLOMERULAR FILTRATION RATE > 60.0 (>60); GLUCOSE, FASTING 113 MG/DL (70-100); LIPASE 108 U/L (73-393); POTASSIUM SERUM 3.6 MEQ/L (3.5-5.1); SODIUM LEVEL 138 MEQ/L (136-145); TOTAL PROTEIN 7.8 GM/DL (6.4-8.2)
[2018-01-12] MEDS: NS 1,000 ML IV (11:00)
[2018-01-12 11:07] LABS: BASO % 0.3 % (0.0-1.0); EOS # 0.1 10^3/uL (0.0-0.50); EOS % 0.9 % (0.0-3.0); HEMATOCRIT 40.8 % (36.0-47.0); HEMOGLOBIN 13.1 g/dl (12.0-15.5); IMMATURE GRANULOCYTE % 0.3 % (0-3.0); LYMPH # 1.3 10^3/uL (1.5-6.5); LYMPH % 19.4 % (24.0-44.0); MEAN CORPUSCULAR HEMOGLOBIN 28.2 pg (27.0-33.0); MEAN CORPUSCULAR HGB CONC 32.1 g/dl (32.0-36.5); MEAN CORPUSCULAR VOLUME 87.7 fl (80.0-96.0); MONO # 0.7 10^3/uL (0.0-0.8); NEUTROPHILS # 4.7 10^3/uL (1.8-7.7); NEUTROPHILS % 69.1 % (36.0-66.0); PLATELET COUNT, AUTOMATED 312 10^3/uL (150-450); RED BLOOD COUNT 4.65 10^6/uL (4.00-5.40); RED CELL DISTRIBUTION WIDTH 12.6 % (11.5-14.5); WHITE BLOOD COUNT 6.8 10^3/uL (4.0-10.0)
[2018-01-12 12:42] LABS: KETONE, URINE AUTO RFX NEGATIVE (NEGATIVE); MUCUS, URINE RFX SMALL (NEGATIVE); NITRITE, URINE AUTO RFX NEGATIVE (NEGATIVE); RBC, URINE AUTO RFX 3 /HPF (0-3); SPECIFIC GRAVITY UR AUTO RFX 1.011 (1.002-1.035); SQUAM EPITHELIAL CELL UR AURFX 5 /HPF (0-6); WBC, URINE AUTO RFX 6 /HPF (0-3)
[2018-01-12 12:52] LABS: LEUKOCYTE ESTERASE UR AUTO RFX TRACE (NEGATIVE)
== END 2018-01-12 13:00 | disposition home or self-care (01) ==
LOC: M ED 09:39
DX: R19.7 Diarrhea, unspecified (principal); R10.9 Unspecified abdominal pain; R11.0 Nausea; F41.9 Anxiety disorder, unspecified; K21.9 Gastro-esophageal reflux disease without esophagitis; J30.89 Other allergic rhinitis; Z79.899 Other long term (current) drug therapy; Z88.8 Allergy status to other drugs, medicaments and biological substances
CPT/HCPCS: 82150

== ENCOUNTER 2018-02-23 14:00 | Emergency (ER) | payer OTHER ==
[~2018-02-23] VITALS: Ht 162.6 cm; Wt 95.5 kg
[~2018-02-23 14:00] MED LIST changes: +AUGM875T28 PO; +FLON1SPR; +OMEP40CA2 PO; +ZAFI1TAB; +[UNRECOGNIZED DRUG - CODE]
[2018-02-23 14:01] VITALS: BP 130/75
[2018-02-23] MEDS ORDERED: AUGM875T28 PO (15:56)
[2018-02-23] MEDS ORDERED: CIPRODEX OTIC (15:56)
== END 2018-02-23 16:09 | disposition home or self-care (01) ==
LOC: M ED 14:00
DX: H60.93 Unspecified otitis externa, bilateral (principal); H66.001 Acute suppurative otitis media without spontaneous rupture of ear drum, right ear; J30.2 Other seasonal allergic rhinitis; K21.9 Gastro-esophageal reflux disease without esophagitis; Z88.1 Allergy status to other antibiotic agents; Z79.899 Other long term (current) drug therapy

== ENCOUNTER 2018-03-27 20:08 | Emergency (ER) | payer OTHER ==
[~2018-03-27] VITALS: Ht 172.7 cm; Wt 90.0 kg
[~2018-03-27 20:08] MED LIST changes: +CIPRODEX OTIC
[2018-03-27] MEDS ORDERED: CLAR1TAB2 PO (22:05)
[2018-03-27] MEDS ORDERED: TESS100C PO (22:05)
[2018-03-27 22:31] VITALS: BP 137/78
--- NOTE | 2018-03-28 02:45 | REP ---
Clinical: Chronic cough . Comparison: 07/11/2017 . Technique: PA and lateral. Findings: The mediastinum and cardiac silhouette are normal. The lung vazquez are clear and without acute consolidation, effusion, or pneumothorax. The skeletal structures are intact and normal. Impression: 1. No acute cardiopulmonary process. Electronically Signed by Sumit Mark MD 03/28/2018 02:36 A
== END 2018-03-27 22:31 | disposition home or self-care (01) ==
LOC: M ED 20:08
DX: R05 Cough (principal); K21.9 Gastro-esophageal reflux disease without esophagitis; F41.9 Anxiety disorder, unspecified; Z79.899 Other long term (current) drug therapy

== ENCOUNTER 2018-06-05 14:07 | Emergency (ER) | payer OTHER ==
[~2018-06-05] VITALS: Ht 162.6 cm; Wt 98.2 kg
[2018-06-05 14:07] VITALS: BP 117/70
[~2018-06-05 14:07] MED LIST changes: +CLAR1TAB2 PO; +TESS100C PO
[2018-06-05] MEDS ORDERED: MAGICMW SSP (14:46)
== END 2018-06-05 15:00 | disposition home or self-care (01) ==
LOC: M ED 14:07
DX: J02.8 Acute pharyngitis due to other specified organisms (principal); Z79.899 Other long term (current) drug therapy; Z91.040 Latex allergy status; Z88.8 Allergy status to other drugs, medicaments and biological substances

== ENCOUNTER → 2018-09-17 | Outpatient (REF) | payer OTHER ==
[~2018-09-17] MED LIST changes: +MAGICMW SSP
== END ==
LOC: M SFHCPLAZ 17:53
PROVIDERS: ATTEND Family Medicine
DX: E66.9 Obesity, unspecified (principal); Z53.9 Procedure and treatment not carried out, unspecified reason

== ENCOUNTER → 2018-10-15 | Outpatient (REF) | payer OTHER ==
[~2018-10-15] MED LIST changes: +CIPRODEX AS; -OMEP40CA2 PO; +OMEP40CA97 PO
[2018-10-16 09:05] LABS: LUTEINIZING HORMONE 3.4 mIU/mL; THYROID PEROXIDASE ANTIBODY < 28.0 U/ML (<60.0)
== END ==
LOC: M SFHCPLAZ 14:03
PROVIDERS: ATTEND Family Medicine
DX: E66.9 Obesity, unspecified (principal)

== ENCOUNTER → 2018-10-15 | Outpatient (CLI) | payer OTHER ==
[~2018-10-15] MED LIST changes: -CIPRODEX AS; +OMEP40CA2 PO; -OMEP40CA97 PO
--- NOTE | 2018-10-16 12:01 | REP ---
Clinical: Pelvic pain. Technique: Transabdominal pelvic ultrasound followed by transvaginal examination for better evaluation of the endometrium and adnexa. Findings: Bladder is unremarkable and currently measures 6.7 x 5.8 x 3.2 cm. Heterogeneous anteverted uterus measures 9.6 x 4.3 x 5.9 cm. Endometrial complex measures 5.9 mm thickness. No discrete uterine or endometrial abnormalities appreciated. Bilateral ovaries are normal in appearance. Right ovary measures 2.2 x 2.4 x 2.0 cm. Left ovary measures 2.4 x 2.1 x 1.9 cm. No pelvic fluid or adnexal mass lesion. Impression: Unremarkable pelvic ultrasound.
== END ==
LOC: M WHC 13:00
PROVIDERS: ATTEND Student in an Organized Health Care Education/Training Program
DX: E66.9 Obesity, unspecified (principal)

== ENCOUNTER 2018-12-22 23:34 | Emergency (ER) | payer OTHER ==
[~2018-12-22] VITALS: Ht 162.6 cm; Wt 100.0 kg
[~2018-12-22 23:34] MED LIST changes: -OMEP40CA2 PO; +OMEP40CA97 PO
[2018-12-23 00:23] LABS: BASO % 0.5 % (0.0-1.0); EOS # 0.2 10^3/uL (0.0-0.5); EOS % 2.2 % (0.0-3.0); HEMATOCRIT 40.5 % (36.0-47.0); HEMOGLOBIN 12.6 g/dl (12.0-15.5); LYMPH % 36.1 % (24.0-44.0); MEAN CORPUSCULAR HEMOGLOBIN 28.1 pg (27.0-33.0); MEAN CORPUSCULAR HGB CONC 31.1 g/dl (32.0-36.5); MEAN CORPUSCULAR VOLUME 90.4 fl (80.0-96.0); MONO # 0.6 10^3/uL (0.0-0.8); MONO % 6.9 % (0.0-5.0); NEUTROPHILS # 4.5 10^3/uL (1.5-8.5); NEUTROPHILS % 54.1 % (36.0-66.0); PLATELET COUNT, AUTOMATED 319 10^3/uL (150-450); RED BLOOD COUNT 4.48 10^6/uL (4.00-5.40); WHITE BLOOD COUNT 8.4 10^3/uL (4.0-10.0)
[2018-12-23 00:41] LABS: BLOOD UREA NITROGEN 11 MG/DL (7-18); CALCIUM LEVEL 8.6 MG/DL (8.5-10.1); CARBON DIOXIDE LEVEL 28 MEQ/L (21-32); CHLORIDE LEVEL 106 MEQ/L (98-107); CREATININE FOR GFR 0.85 MG/DL (0.55-1.30); GLOMERULAR FILTRATION RATE > 60.0 (>60); GLUCOSE, FASTING 116 MG/DL (70-100); POTASSIUM SERUM 3.9 MEQ/L (3.5-5.1); SODIUM LEVEL 143 MEQ/L (136-145)
[2018-12-23 00:56] VITALS: BP 122/77
--- NOTE | 2018-12-23 16:30 | ECGEPIP ---
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
== END 2018-12-23 01:04 | disposition home or self-care (01) ==
LOC: M ED 23:34
DX: R68.89 Other general symptoms and signs (principal); I45.19 Other right bundle-branch block; I49.9 Cardiac arrhythmia, unspecified

== ENCOUNTER → 2018-12-27 | Outpatient (REF) | payer OTHER | LOC: M SFHCPLAZ 18:35 | PROVIDERS: ATTEND Family Medicine | DX: Z53.9 Procedure and treatment not carried out, unspecified reason (principal) ==

== ENCOUNTER 2019-02-16 20:03 | Emergency (ER) | payer OTHER ==
[~2019-02-16] VITALS: Ht 162.6 cm; Wt 95.5 kg
[2019-02-16 20:33] VITALS: BP 137/66
[2019-02-16 20:45] LABS: URINE PREG TEST NEGATIVE (NEGATIVE)
[2019-02-16 20:54] LABS: APPEARANCE, URINE CLEAR (CLEAR); BACTERIA, URINE AUTO 1+ (NEGATIVE); BILIRUBIN, URINE AUTO NEGATIVE (NEGATIVE); BLOOD, URINE BLOOD NEGATIVE (NEGATIVE); COLOR, URINE YELLOW (YELLOW); GLUCOSE, URINE (UA) AUTO NEGATIVE (NEGATIVE); KETONE, URINE AUTO NEGATIVE (NEGATIVE); LEUKOCYTE ESTERASE, URINE AUTO NEGATIVE (NEGATIVE); NITRITE, URINE AUTO NEGATIVE (NEGATIVE); PROTEIN, URINE AUTO NEGATIVE (NEGATIVE); RBC, URINE AUTO 1 /HPF (0-3); SPECIFIC GRAVITY URINE AUTO 1.011 (1.002-1.035); SQUAMOUS EPITHELIAL CELL UR AU 2 /HPF (0-6); UROBILINOGEN, URINE AUTO 0.2 mg/dL (0.0-2.0); WBC, URINE AUTO 3 /HPF (0-3)
[2019-02-16 22:21] LABS: BASO % 0.5 % (0.0-1.0); EOS # 0.2 10^3/uL (0.0-0.5); EOS % 2.3 % (0.0-3.0); HEMATOCRIT 40.8 % (36.0-47.0); HEMOGLOBIN 13.1 g/dl (12.0-15.5); LYMPH # 2.7 10^3/uL (1.5-5.0); LYMPH % 34.5 % (24.0-44.0); MEAN CORPUSCULAR HEMOGLOBIN 28.4 pg (27.0-33.0); MEAN CORPUSCULAR HGB CONC 32.1 g/dl (32.0-36.5); MEAN CORPUSCULAR VOLUME 88.3 fl (80.0-96.0); MONO # 0.7 10^3/uL (0.0-0.8); MONO % 8.6 % (0.0-5.0); NEUTROPHILS # 4.2 10^3/uL (1.5-8.5); NEUTROPHILS % 53.8 % (36.0-66.0); PLATELET COUNT, AUTOMATED 278 10^3/uL (150-450); RED BLOOD COUNT 4.62 10^6/uL (4.00-5.40); WHITE BLOOD COUNT 7.8 10^3/uL (4.0-10.0)
[2019-02-16] MEDS ORDERED: CIPRODEX OTIC SUSP 7.5ML AS STA (23:22)
--- NOTE | 2019-02-16 23:33 | REPVR ---
PROCEDURE INFORMATION: Exam: US Retroperitoneal Limited, Kidneys Exam date and time: 02/16/2019 10:55 PM Age: 28 years old Clinical indication: Abdominal pain; Additional info: Bilateral CVA pain, HX stones TECHNIQUE: Imaging protocol: Real-time ultrasound of the retroperitoneum with image documentation. Examination was focused on the kidneys. COMPARISON: CT ABD PELVIS W/O CONTRAST 04/12/2016 3:59 AM FINDINGS: Right kidney: The right kidney measures 11.3 cm in length by 4.3 cm in thickness. The right renal cortex measures approximately 7 mm in thickness. There is no evidence of hydronephrosis on the right. There is severe increased echogenicity of the renal pyramids bilaterally suspicious for changes nephrocalcinosis. Small echogenic stones scattered throughout the right kidney and nonobstructive This should be correlated with a CT and compared to the examination of 2016. Left kidney: The left kidney measures 11 cm in length by 5.7 cm in thickness. The left renal cortex measures approximately 9 mm in thickness. Severe echogenicity of the renal pyramids is also noted on the left and symmetric. There are small echogenic stones scattered throughout the kidney/nonobstructive. Normal appearing urinary bladder. There is no evidence of hydronephrosis on the left. IMPRESSION: Severe increased echogenicity of the renal pyramids is probably secondary to severe changes of nephrocalcinosis. Recommend correlation with a CT scan. Small scattered nonobstructive stones. Electronically signed by: Renan Corona On 02/16/2019 23:32:41 PM
--- NOTE | 2019-02-17 01:04 | REPVR ---
PROCEDURE INFORMATION: Exam: CT Abdomen And Pelvis Without Contrast Exam date and time: 02/17/2019 12:02 AM Age: 28 years old Clinical indication: Abdominal pain; Generalized; Additional info: Bilat lbp, califications on US, recommended CT TECHNIQUE: Imaging protocol: Computed tomography of the abdomen and pelvis without contrast. Radiation optimization: All CT scans at this facility use at least one of these dose optimization techniques: automated exposure control; mA and/or kV adjustment per patient size (includes targeted exams where dose is matched to clinical indication); or iterative reconstruction. COMPARISON: CT ABD PELVIS W/O CONTRAST 04/12/2016 3:59 AM FINDINGS: Lungs: Clear appearing lung bases. Heart: The heart is normal in size and there is no pericardial effusion. Liver: Normal appearing liver. Gallbladder and bile ducts: Normal gallbladder. Pancreas: Normal. No ductal dilation. Spleen: Normal spleen. Adrenals: Normal adrenal glands. Kidneys and ureters: There are multiple calcified stones throughout the right and left kidney that are nonobstructive. There is hazy increased density of the renal pyramids consistent with severe nephrocalcinosis. This has progressed since 2017. There is no evidence of hydronephrosis. Stomach and bowel: Unremarkable. No obstruction. No mucosal thickening. Appendix: Normal appearing appendix. Intraperitoneal space: There is no evidence of pneumoperitoneum. Vasculature: Unremarkable. No abdominal aortic aneurysm. Lymph nodes: There is no evidence of lymphadenopathy. Bladder: Normal appearing urinary bladder. Reproductive: The uterus is prominent. Follicular cysts are noted of the right ovary. Bones/joints: There is no evidence of bony abnormality. Soft tissues: Unremarkable. IMPRESSION: Calcified stones right and left kidney with severe bilateral nephrocalcinosis. This has progressed since 2017. No evidence of hydronephrosis. Electronically signed by: Renan Corona On 02/17/2019 01:03:57 AM
[2019-02-17] MEDS ORDERED: CIPRODEX AS (01:15)
[2019-02-17] MEDS ORDERED: AUGM875T28 PO (19:40)
== END 2019-02-17 01:34 | disposition home or self-care (01) ==
LOC: M ED 20:03
DX: H72.92 Unspecified perforation of tympanic membrane, left ear (principal); E83.59 Other disorders of calcium metabolism; K21.9 Gastro-esophageal reflux disease without esophagitis; Z87.442 Personal history of urinary calculi; Z88.8 Allergy status to other drugs, medicaments and biological substances; Z91.040 Latex allergy status

== ENCOUNTER → 2020-05-21 | Outpatient (CLI) | payer SELFPAY ==
[~2020-05-21] MED LIST changes: +ALLE180T33 PO; +AMOX500C PO; +CIPR7.5D5 AS; +CIPR7.5D5 OTIC; -CIPRODEX OTIC
== END ==
LOC: M LABSMTC 10:11
PROVIDERS: ATTEND Pediatrics
DX: Z11.52 Encounter for screening for COVID-19 (principal)

== ENCOUNTER → 2020-09-24 | Outpatient (CLI) | payer OTHER ==
[~2020-09-24] MED LIST changes: +OMEP40CA4 PO; -OMEP40CA97 PO
--- NOTE | 2020-09-24 14:33 | REPVR ---
PROCEDURE INFORMATION: Exam: CT Temporal Bones Without Contrast. Exam date and time: 09/24/2020 2:06 PM Age: 30 years old Clinical indication: Eye pain; Left; Additional info: Otearrhea lt ear TECHNIQUE: Imaging protocol: Computed tomography images of the temporal bones without contrast. Radiation optimization: All CT scans at this facility use at least one of these dose optimization techniques: automated exposure control; mA and/or kV adjustment per patient size (includes targeted exams where dose is matched to clinical indication); or iterative reconstruction. COMPARISON: MRI-Brain W/O FOLL BY WITH 01/30/2019 8:57 AM FINDINGS: Right inner ear: Normal. Right ossicles and middle ear: Normal. The middle ear ossicles are intact. Right external auditory canal: Normal. Right facial nerve canal: Normal. Right jugular foramen: No jugular dehiscence. Right carotid canal: No aberrant carotid canal. Right mastoid air cells: Normal. No mastoid effusions. Left inner ear: Normal. Left ossicles and middle ear: Normal. The middle ear ossicles are intact. Left external auditory canal: Normal. Left facial nerve canal: Normal. Left jugular foramen: No jugular dehiscence. Left carotid canal: No aberrant carotid canal. Left mastoid air cells: Normal. No mastoid effusions. Paranasal sinuses: A small mucous retention cyst is present in the left maxillary sinus. Soft tissues: Unremarkable. IMPRESSION: No acute abnormality. Electronically signed by: Valentín Calvin On 09/24/2020 14:33:04 PM
== END ==
LOC: M RAD 13:55
PROVIDERS: ATTEND Physician Assistant Medical
DX: H92.12 Otorrhea, left ear (principal)

== ENCOUNTER 2021-03-13 14:48 | Emergency (ER) | payer OTHER ==
[~2021-03-13] VITALS: Ht 152.4 cm; Wt 100.0 kg
[2021-03-13 14:55] VITALS: BP 111/72
== END 2021-03-13 16:17 | disposition home or self-care (01) ==
LOC: M ED 14:48
DX: F33.9 Major depressive disorder, recurrent, unspecified (principal); F41.9 Anxiety disorder, unspecified; E83.59 Other disorders of calcium metabolism

== ENCOUNTER 2021-04-12 03:27 | Emergency (ER) | payer OTHER, SELFPAY ==
[~2021-04-12] VITALS: Ht 160 cm; Wt 101.1 kg
[2021-04-12] MEDS ORDERED: PANTOPRAZOLE 40MG VIAL (C9113 PER 1) IV ONE (06:35)
[2021-04-12] MEDS ORDERED: GI COCKTAIL 50ML BTL(HYOSCYAMINE/MAALOX/LIDOCAINE VISCOUS)(1:3:1) PO ONE (06:35)
[2021-04-12] MEDS ORDERED: NS 1,000 ML IV ONE (06:35)
[2021-04-12 06:47] LABS: BASO % 0.4 % (0.0-1.0); EOS # 0.1 10^3/uL (0.0-0.5); EOS % 0.8 % (0.0-3.0); HEMATOCRIT 35.8 % (36.0-47.0); HEMOGLOBIN 11.5 g/dl (12.0-15.5); LYMPH # 1.8 10^3/uL (1.5-5.0); LYMPH % 18.9 % (24.0-44.0); MEAN CORPUSCULAR HEMOGLOBIN 27.6 pg (27.0-33.0); MEAN CORPUSCULAR HGB CONC 32.1 g/dl (32.0-36.5); MEAN CORPUSCULAR VOLUME 86.1 fl (80.0-96.0); MONO # 0.9 10^3/uL (0.0-0.8); MONO % 9.4 % (2.0-8.0); NEUTROPHILS # 6.6 10^3/uL (1.5-8.5); PLATELET COUNT, AUTOMATED 282 10^3/uL (150-450); RED BLOOD COUNT 4.16 10^6/uL (4.00-5.40); WHITE BLOOD COUNT 9.5 10^3/uL (4.0-10.0)
[2021-04-12 06:52] LABS: BLOOD UREA NITROGEN 19 MG/DL (7-18); CALCIUM LEVEL 8.8 MG/DL (8.5-10.1); CARBON DIOXIDE LEVEL 25 MEQ/L (21-32); CHLORIDE LEVEL 107 MEQ/L (98-107); GLOMERULAR FILTRATION RATE > 60.0 (>60); GLUCOSE, FASTING 84 MG/DL (70-100); POTASSIUM SERUM 4.1 MEQ/L (3.5-5.1); SODIUM LEVEL 142 MEQ/L (136-145)
[2021-04-12 06:56] LABS: CK-MB VALUE MASS 1.1 NG/ML (<3.6); MB/CK RELATIVE INDEX 1.41 (< OR =4)
[2021-04-12 06:58] LABS: HCG, SERUM QUALITATIVE NEGATIVE (NEGATIVE)
[2021-04-12 08:33] LABS: CK-MB VALUE MASS < 1.0 NG/ML (<3.6); CPK CREATINE PHOSPHOKINASE 62 U/L (26-192); MB/CK RELATIVE INDEX 1.61 (< OR =4)
[2021-04-12] MEDS ORDERED: OMEP10CASR PO (08:40)
[2021-04-12 08:45] VITALS: BP 107/56
== END 2021-04-12 08:55 | disposition home or self-care (01) ==
LOC: M ED 03:27
DX: K21.9 Gastro-esophageal reflux disease without esophagitis (principal); E86.0 Dehydration; I45.19 Other right bundle-branch block; J30.89 Other allergic rhinitis; Z79.899 Other long term (current) drug therapy
CPT/HCPCS: 71045; 80048; 82550; 82553; 84703; 85025; 93005; 93041; 94760; 96361; 96374; 99285; C9113

== ENCOUNTER → 2021-08-09 | Outpatient (CLI) | payer OTHER ==
[~2021-08-09] MED LIST changes: +OMEP10CASR PO
== END ==
LOC: M WHC 10:40
PROVIDERS: ATTEND Pediatrics
DX: E83.59 Other disorders of calcium metabolism (principal); N29 Other disorders of kidney and ureter in diseases classified elsewhere

== ENCOUNTER → 2021-11-10 | Outpatient (REF) | payer OTHER | LOC: M SFHCWAGY 13:16 | PROVIDERS: ATTEND Nurse Practitioner Family | DX: Z12.4 Encounter for screening for malignant neoplasm of cervix (principal); Z77.9 Other contact with and (suspected) exposures hazardous to health ==

== ENCOUNTER 2021-12-03 22:06 | Emergency (ER) | payer OTHER ==
[~2021-12-03] VITALS: Ht 162.6 cm; Wt 104.5 kg
[2021-12-03 22:06] VITALS: BP 130/84
== END 2021-12-03 23:27 | disposition home or self-care (01) ==
LOC: M ED 22:06
DX: S90.32XA Contusion of left foot, initial encounter (principal); W01.0XXA Fall on same level from slipping, tripping and stumbling without subsequent striking against object, initial encounter; K21.9 Gastro-esophageal reflux disease without esophagitis; E83.59 Other disorders of calcium metabolism; N29 Other disorders of kidney and ureter in diseases classified elsewhere; Z79.899 Other long term (current) drug therapy; Z88.8 Allergy status to other drugs, medicaments and biological substances; Z91.040 Latex allergy status

== ENCOUNTER → 2022-01-10 | Outpatient (REF) | payer OTHER | LOC: M LAB REF 17:05 | PROVIDERS: ATTEND Physician Assistant Medical | DX: H60.8X3 Other otitis externa, bilateral (principal) ==

== ENCOUNTER 2022-04-28 09:04 | Emergency (ER) | payer OTHER ==
[~2022-04-28] VITALS: Ht 162.6 cm; Wt 104.2 kg
[~2022-04-28 09:04] MED LIST changes: +MONT-5 PO; -SING10TA32 PO
[2022-04-28] MEDS ORDERED: CETI-24 (09:09)
[2022-04-28 09:35] LABS: BASO % 0.2 % (0.0-1.0); EOS # 0.1 10^3/uL (0.0-0.5); EOS % 0.8 % (0.0-3.0); HEMATOCRIT 42.2 % (36.0-47.0); HEMOGLOBIN 13.3 g/dl (12.0-15.5); LYMPH # 1.2 10^3/uL (1.5-5.0); MEAN CORPUSCULAR HEMOGLOBIN 27.5 pg (27.0-33.0); MEAN CORPUSCULAR HGB CONC 31.5 g/dl (32.0-36.5); MEAN CORPUSCULAR VOLUME 87.4 fl (80.0-96.0); MONO # 0.7 10^3/uL (0.0-0.8); MONO % 5.5 % (2.0-8.0); NEUTROPHILS # 9.8 10^3/uL (1.5-8.5); NEUTROPHILS % 83.2 % (36.0-66.0); PLATELET COUNT, AUTOMATED 357 10^3/uL (150-450); RED BLOOD COUNT 4.83 10^6/uL (4.00-5.40); WHITE BLOOD COUNT 11.8 10^3/uL (4.0-10.0)
[2022-04-28] MEDS ORDERED: NS 1,000 ML IV ONE (09:55)
[2022-04-28] MEDS ORDERED: ONDANSETRON 4MG 2ML VIAL IV ONE (09:55)
[2022-04-28 09:56] LABS: LIPASE 42 U/L (12-53)
[2022-04-28 10:01] LABS: ALBUMIN 3.5 G/DL (3.2-5.2); ALKALINE PHOSPHATASE 87 U/L (46-116); ALT/SGPT 17 U/L (7.0-40); AST/SGOT 18 U/L (<34); BILIRUBIN,DIRECT < 0.1 MG/DL (<0.4); BILIRUBIN,TOTAL 0.4 MG/DL (0.3-1.2); TOTAL PROTEIN 7.1 G/DL (5.7-8.2)
[2022-04-28] MEDS ORDERED: ONDA4TAB6 PO (12:35)
[2022-04-28 12:41] VITALS: BP 128/82
== END 2022-04-28 12:45 | disposition home or self-care (01) ==
LOC: M ED 09:04
DX: R10.9 Unspecified abdominal pain (principal); R11.2 Nausea with vomiting, unspecified; R19.7 Diarrhea, unspecified; K21.9 Gastro-esophageal reflux disease without esophagitis; Z88.8 Allergy status to other drugs, medicaments and biological substances; Z91.040 Latex allergy status
CPT/HCPCS: 36415; 74021; 80047; 80076; 83690; 84702; 85025; 87507; 96374; 99284; J2405

== ENCOUNTER → 2022-06-02 | Outpatient (REF) | payer OTHER ==
[~2022-06-02] MED LIST changes: +ARNU1INH; +CETI-24; +CETI-24 PO; +DOXY100C3; +FLON27.5 NARES; +OMEP1CAP71; +ONDA4TAB6 PO; +POTA4.25; +SPIR50TA4; +VITA200016
[2022-06-02 14:02] LABS: BASO % 0.6 % (0.0-1.0); EOS # 0.3 10^3/uL (0.0-0.5); EOS % 3.6 % (0.0-3.0); HEMATOCRIT 38.2 % (36.0-47.0); HEMOGLOBIN 12.2 g/dl (12.0-15.5); LYMPH # 2.2 10^3/uL (1.5-5.0); LYMPH % 31.5 % (24.0-44.0); MEAN CORPUSCULAR HEMOGLOBIN 28.2 pg (27.0-33.0); MEAN CORPUSCULAR HGB CONC 31.9 g/dl (32.0-36.5); MEAN CORPUSCULAR VOLUME 88.4 fl (80.0-96.0); MONO # 0.5 10^3/uL (0.0-0.8); MONO % 6.4 % (2.0-8.0); NEUTROPHILS % 57.6 % (36.0-66.0); PLATELET COUNT, AUTOMATED 301 10^3/uL (150-450); RED BLOOD COUNT 4.32 10^6/uL (4.00-5.40)
[2022-06-02 14:24] LABS: URIC ACID 4.3 MG/DL (3.1-7.8)
[2022-06-02 14:27] LABS: ALBUMIN 3.4 G/DL (3.2-5.2); ALKALINE PHOSPHATASE 89 U/L (46-116); ALT/SGPT 17 U/L (7.0-40); AST/SGOT 16 U/L (<34); BILIRUBIN,TOTAL 0.3 MG/DL (0.3-1.2); BLOOD UREA NITROGEN 8 MG/DL (9-23); CALCIUM LEVEL 8.5 MG/DL (8.5-10.1); CARBON DIOXIDE LEVEL 29 MMOL/L (20-31); CHLORIDE LEVEL 105 MMOL/L (98-107); CHOLESTEROL LEVEL 152 MG/DL (<200); CHOLESTEROL RISK RATIO 4.66 (<5); CREATININE FOR GFR 0.67 MG/DL (0.55-1.30); GLOMERULAR FILTRATION RATE > 60.0 (>60); GLUCOSE, FASTING 83 MG/DL (60-100); HDL CHOLESTEROL 32.6 MG/DL (>40); LDL CHOLESTEROL 100.4 MG/DL (<100); NON-HDL-C 119.4 MG/DL; POTASSIUM SERUM 4.5 MMOL/L (3.5-5.1); SODIUM LEVEL 140 MMOL/L (136-145); TOTAL PROTEIN 6.8 G/DL (5.7-8.2); TRIGLYCERIDES LEVEL 95 MG/DL (<150)
[2022-06-02 14:28] LABS: TOTAL 25(OH) VITAMIN D 33.8 NG/ML (20.0-100.0)
[2022-06-02 15:53] LABS: HEMOGLOBIN A1c 5.1 % (4.0-6.0)
== END ==
LOC: M LAB REF 12:53
PROVIDERS: ATTEND Pediatrics
DX: E03.9 Hypothyroidism, unspecified (principal); E55.9 Vitamin D deficiency, unspecified; E66.01 Morbid (severe) obesity due to excess calories; Q61.5 Medullary cystic kidney

== ENCOUNTER 2022-06-05 12:47 | Emergency (ER) | payer OTHER ==
[~2022-06-05] VITALS: Ht 162.6 cm; Wt 104.0 kg
[~2022-06-05 12:47] MED LIST changes: -ARNU1INH; -CETI-24 PO; -DOXY100C3; -FLON27.5 NARES; -OMEP1CAP71; -POTA4.25; -SPIR50TA4; -VITA200016
[2022-06-05] MEDS ORDERED: OMEP1CAP71 (13:13)
[2022-06-05] MEDS ORDERED: ARNU1INH (13:13)
[2022-06-05] MEDS ORDERED: DOXY100C3 (13:13)
[2022-06-05] MEDS ORDERED: POTA4.25 (13:13)
[2022-06-05] MEDS ORDERED: VITA200016 (13:13)
[2022-06-05] MEDS ORDERED: SPIR50TA4 (13:13)
[2022-06-05] MEDS ORDERED: CETI-24 PO (15:44)
[2022-06-05] MEDS ORDERED: FLON27.5 NARES (15:44)
[2022-06-05 15:52] VITALS: BP 124/86
== END 2022-06-05 15:54 | disposition home or self-care (01) ==
LOC: M ED 12:47
DX: J30.9 Allergic rhinitis, unspecified (principal); L73.2 Hidradenitis suppurativa

== ENCOUNTER 2023-04-17 07:38 | Emergency (ER) | payer OTHER ==
[~2023-04-17] VITALS: Ht 162.6 cm; Wt 106.8 kg
[~2023-04-17 07:38] MED LIST changes: +ACET15SO4; +ARNU1INH; +CETI-24 PO; +DOXY100C3; +FLON27.5 NARES; +OMEP1CAP71; +POTA4.25; +SPIR50TA4; +VITA200016; -ZAFI1TAB; +ZAFI20TA11; -[UNRECOGNIZED DRUG - CODE]
[2023-04-17] MEDS ORDERED: CEFD300CAP PO (07:58)
[2023-04-17] MEDS ORDERED: CIPR7.5D2 AD (11:24)
[2023-04-17 11:36] VITALS: BP 145/96; TEMP 96.7; O2SAT 99
== END 2023-04-17 11:35 | disposition home or self-care (01) ==
LOC: M ED 09:15
DX: H60.91 Unspecified otitis externa, right ear (principal); K21.9 Gastro-esophageal reflux disease without esophagitis; Z79.899 Other long term (current) drug therapy; Z88.8 Allergy status to other drugs, medicaments and biological substances; Z91.040 Latex allergy status

== ENCOUNTER 2023-04-19 08:19 | Emergency (ER) | payer OTHER ==
[~2023-04-19] VITALS: Ht 162.6 cm; Wt 107.1 kg
[~2023-04-19 08:19] MED LIST changes: +CEFD300CAP PO; +CIPR7.5D2 AD
[2023-04-19] MEDS ORDERED: IBUP-1022 PO (08:26)
[2023-04-19] MEDS ORDERED: ACE65ERTAB PO (08:26)
[2023-04-19 12:04] LABS: BASO % 0.3 % (0.0-1.0); EOS # 0.1 10^3/uL (0.0-0.5); EOS % 1.5 % (0.0-3.0); HEMATOCRIT 39.2 % (36.0-47.0); HEMOGLOBIN 12.6 g/dl (12.0-15.5); LYMPH # 2.3 10^3/uL (1.5-5.0); LYMPH % 26.6 % (24.0-44.0); MEAN CORPUSCULAR HEMOGLOBIN 27.6 pg (27.0-33.0); MEAN CORPUSCULAR HGB CONC 32.1 g/dl (32.0-36.5); MEAN CORPUSCULAR VOLUME 85.8 fl (80.0-96.0); MONO # 0.6 10^3/uL (0.0-0.8); MONO % 6.8 % (2.0-8.0); NEUTROPHILS # 5.7 10^3/uL (1.5-8.5); NEUTROPHILS % 64.7 % (36.0-66.0); PLATELET COUNT, AUTOMATED 310 10^3/uL (150-450); RED BLOOD COUNT 4.57 10^6/uL (4.00-5.40); WHITE BLOOD COUNT 8.8 10^3/uL (4.0-10.0)
[2023-04-19] MEDS: KETOROLAC 30 MG/ML 1ML VIAL IV ONE (12:36)
[2023-04-19] MEDS: CIPRODEX OTIC SUSP 7.5ML AU ONE (14:06)
[2023-04-19] MEDS ORDERED: LEVO1TAB39 PO (14:33)
[2023-04-19] MEDS ORDERED: CIPR7.5D2 OTIC (14:33)
[2023-04-19 14:42] VITALS: BP 121/71; TEMP 98; O2SAT 97
== END 2023-04-19 14:51 | disposition home or self-care (01) ==
LOC: M ED 08:19
DX: H60.93 Unspecified otitis externa, bilateral (principal); K21.9 Gastro-esophageal reflux disease without esophagitis
CPT/HCPCS: 70480; 80047; 85025; 87070; 87077; 87186; 87205; 96374; 99284; J1885

== ENCOUNTER → 2023-06-18 | Outpatient (REF) | payer OTHER ==
[~2023-06-18] MED LIST changes: +ACE65ERTAB PO; +CIPR7.5D2 OTIC; +IBUP-1022 PO; +LEVO1TAB39 PO
[2023-06-18 17:57] LABS: BASO % 0.6 % (0.0-1.0); EOS # 0.2 10^3/uL (0.0-0.5); EOS % 2.8 % (0.0-3.0); HEMATOCRIT 39.4 % (36.0-47.0); HEMOGLOBIN 12.4 g/dl (12.0-15.5); LYMPH # 2.1 10^3/uL (1.5-5.0); LYMPH % 30.6 % (24.0-44.0); MEAN CORPUSCULAR HEMOGLOBIN 27.6 pg (27.0-33.0); MEAN CORPUSCULAR HGB CONC 31.5 g/dl (32.0-36.5); MEAN CORPUSCULAR VOLUME 87.6 fl (80.0-96.0); MONO # 0.5 10^3/uL (0.0-0.8); MONO % 6.6 % (2.0-8.0); PLATELET COUNT, AUTOMATED 330 10^3/uL (150-450); WHITE BLOOD COUNT 6.8 10^3/uL (4.0-10.0)
[2023-06-18 18:27] LABS: IMMUNOGLOBULIN G 1315 MG/DL (650-1600)
== END ==
LOC: M LAB REF 16:43
PROVIDERS: ATTEND Pediatrics
DX: J32.9 Chronic sinusitis, unspecified (principal); H16.223 Keratoconjunctivitis sicca, not specified as Sjogren's, bilateral

== ENCOUNTER → 2023-08-27 | Outpatient (REF) | payer OTHER ==
[~2023-08-27] MED LIST changes: +ONDA-282 PO; -ONDA4TAB6 PO
[2023-08-27 18:29] LABS: BASO % 0.5 % (0.0-1.0); EOS # 0.1 10^3/uL (0.0-0.5); EOS % 1.6 % (0.0-3.0); HEMATOCRIT 38.3 % (36.0-47.0); HEMOGLOBIN 12.1 g/dl (12.0-15.5); LYMPH # 2.5 10^3/uL (1.5-5.0); LYMPH % 28.7 % (24.0-44.0); MEAN CORPUSCULAR HEMOGLOBIN 27.1 pg (27.0-33.0); MEAN CORPUSCULAR HGB CONC 31.6 g/dl (32.0-36.5); MEAN CORPUSCULAR VOLUME 85.9 fl (80.0-96.0); MONO # 0.6 10^3/uL (0.0-0.8); NEUTROPHILS # 5.3 10^3/uL (1.5-8.5); NEUTROPHILS % 61.8 % (36.0-66.0); PLATELET COUNT, AUTOMATED 332 10^3/uL (150-450); RED BLOOD COUNT 4.46 10^6/uL (4.00-5.40); WHITE BLOOD COUNT 8.5 10^3/uL (4.0-10.0)
[2023-08-27 18:30] LABS: ALBUMIN 3.6 G/DL (3.2-5.2); ALKALINE PHOSPHATASE 89 U/L (46-116); ALT/SGPT 16 U/L (7.0-40); AST/SGOT 13 U/L (<34); BILIRUBIN,TOTAL 0.3 MG/DL (0.3-1.2); BLOOD UREA NITROGEN 10 MG/DL (9-23); CALCIUM LEVEL 8.6 MG/DL (8.5-10.1); CARBON DIOXIDE LEVEL 27 MMOL/L (20-31); CHLORIDE LEVEL 105 MMOL/L (98-107); CREATININE FOR GFR 0.75 MG/DL (0.55-1.30); GLOMERULAR FILTRATION RATE > 60.0 (>60); GLUCOSE, FASTING 88 MG/DL (60-100); POTASSIUM SERUM 4.3 MMOL/L (3.5-5.1); SODIUM LEVEL 137 MMOL/L (136-145)
[2023-08-27 18:32] LABS: TOTAL 25(OH) VITAMIN D 34.5 NG/ML (20.0-100.0)
[2023-08-27 18:37] LABS: HEMOGLOBIN A1c 5.2 % (4.0-6.0)
== END ==
LOC: M LAB REF 17:23
PROVIDERS: ATTEND Pediatrics
DX: E03.9 Hypothyroidism, unspecified (principal); K21.9 Gastro-esophageal reflux disease without esophagitis; E55.9 Vitamin D deficiency, unspecified; E66.9 Obesity, unspecified; Z68.41 Body mass index [BMI] 40.0-44.9, adult

== ENCOUNTER → 2023-11-30 | Outpatient (REF) | payer OTHER ==
[2023-11-30 18:16] LABS: FREE T4 1.24 NG/DL (0.89-1.76); THYROID STIMULATING HORMONE 3.516 uIU/ML (0.55-4.78)
== END ==
LOC: M LAB REF 17:47
PROVIDERS: ATTEND Pediatrics
DX: R94.6 Abnormal results of thyroid function studies (principal); G56.22 Lesion of ulnar nerve, left upper limb

== ENCOUNTER 2024-04-12 21:38 | Emergency (ER) | payer OTHER ==
[~2024-04-12] VITALS: Ht 162.6 cm; Wt 109.0 kg
[2024-04-12 22:36] LABS: BASO # 0.1 10^3/uL (0.0-0.2); BASO % 0.5 % (0.0-1.0); EOS # 0.2 10^3/uL (0.0-0.5); EOS % 1.5 % (0.0-3.0); HEMATOCRIT 39.5 % (36.0-47.0); HEMOGLOBIN 12.5 g/dl (12.0-15.5); LYMPH # 3.4 10^3/uL (1.5-5.0); LYMPH % 35.1 % (24.0-44.0); MEAN CORPUSCULAR HEMOGLOBIN 27.5 pg (27.0-33.0); MEAN CORPUSCULAR HGB CONC 31.6 g/dl (32.0-36.5); MEAN CORPUSCULAR VOLUME 86.8 fl (80.0-96.0); MONO % 9.9 % (2.0-8.0); NEUTROPHILS # 5.1 10^3/uL (1.5-8.5); NEUTROPHILS % 52.7 % (36.0-66.0); PLATELET COUNT, AUTOMATED 310 10^3/uL (150-450); RED BLOOD COUNT 4.55 10^6/uL (4.00-5.40); WHITE BLOOD COUNT 9.8 10^3/uL (4.0-10.0)
[2024-04-12 23:04] LABS: ALBUMIN 3.7 G/DL (3.2-5.2); ALKALINE PHOSPHATASE 85 U/L (35-104); ALT/SGPT 45 U/L (7.0-40); AST/SGOT 107 U/L (<34); BILIRUBIN,TOTAL 0.2 MG/DL (0.3-1.2); BLOOD UREA NITROGEN 14 MG/DL (9-23); CALCIUM LEVEL 8.9 MG/DL (8.5-10.1); CARBON DIOXIDE LEVEL 26 MMOL/L (20-31); CHLORIDE LEVEL 106 MMOL/L (98-107); CREATININE FOR GFR 0.79 MG/DL (0.55-1.30); GLOMERULAR FILTRATION RATE > 60.0 (>60); GLUCOSE, FASTING 92 MG/DL (60-100); MAGNESIUM LEVEL 1.9 MG/DL (1.8-2.4); SODIUM LEVEL 140 MMOL/L (136-145); TOTAL PROTEIN 7.2 G/DL (5.7-8.2)
[2024-04-12 23:08] LABS: THYROID STIMULATING HORMONE 8.621 uIU/ML (0.55-4.78)
[2024-04-12 23:34] LABS: HCG, SERUM QUALITATIVE NEGATIVE (NEGATIVE)
[2024-04-13] MEDS ORDERED: ZITHTAB PO (01:34)
[2024-04-13 01:53] VITALS: BP 121/80; TEMP 97.3; O2SAT 99
== END 2024-04-13 02:01 | disposition home or self-care (01) ==
LOC: M ED 21:38
DX: K20.90 Esophagitis, unspecified without bleeding (principal); G90.A Postural orthostatic tachycardia syndrome [POTS]; Z79.899 Other long term (current) drug therapy; Z88.8 Allergy status to other drugs, medicaments and biological substances; Z91.040 Latex allergy status

== ENCOUNTER 2024-09-17 15:47 | Emergency (ER) | payer OTHER ==
[~2024-09-17] VITALS: Ht 165.1 cm; Wt 107.5 kg
[~2024-09-17 15:47] MED LIST changes: -ACE65ERTAB PO; +ACET-1593 PO; -VITA200016; +VITA200016 PO; +ZITHTAB PO
[2024-09-17 17:30] LABS: BASO # 0.1 10^3/uL (0.0-0.2); BASO % 0.5 % (0.0-1.0); EOS # 0.1 10^3/uL (0.0-0.5); EOS % 0.9 % (0.0-3.0); LYMPH # 2.6 10^3/uL (1.5-5.0); LYMPH % 25.3 % (24.0-44.0); MONO # 0.9 10^3/uL (0.0-0.8); MONO % 8.6 % (2.0-8.0); NEUTROPHILS # 6.5 10^3/uL (1.5-8.5); NEUTROPHILS % 64.3 % (36.0-66.0); PLATELET COUNT, AUTOMATED 307 10^3/uL (150-450)
[2024-09-17 17:54] LABS: CALCIUM LEVEL 9.1 MG/DL (8.5-10.1); CARBON DIOXIDE LEVEL 27 MMOL/L (20-31); CHLORIDE LEVEL 103 MMOL/L (98-107); CREATININE FOR GFR 0.80 MG/DL (0.55-1.30); GLOMERULAR FILTRATION RATE > 90.0 (>60); POTASSIUM SERUM 3.8 MMOL/L (3.5-5.1); SODIUM LEVEL 139 MMOL/L (136-145)
[2024-09-17 18:18] LABS: HCG, SERUM QUALITATIVE NEGATIVE (NEGATIVE)
[2024-09-17] MEDS ORDERED: ISOVUE-370 76% 100 ML VIAL As Ordered ONE (19:24)
[2024-09-17] MEDS ORDERED: BANO25TA PO (21:49)
[2024-09-17] MEDS ORDERED: LORA-930 PO (21:49)
[2024-09-17] MEDS ORDERED: FAMO1TAB11 PO (21:49)
[2024-09-17] MEDS ORDERED: SPIR50TA4 PO (21:49)
[2024-09-17] MEDS ORDERED: KETO120S5 TOP (21:49)
[2024-09-17] MEDS ORDERED: HOME MED LIST COMPLETE! XX SCH (21:55)
[2024-09-17 22:00] VITALS: BP 151/84; TEMP 97.4; O2SAT 98
== END 2024-09-17 22:20 | disposition home or self-care (01) ==
LOC: M ED 15:47 → CANBEDREQ 21:55 → M ED 22:20
DX: K80.20 Calculus of gallbladder without cholecystitis without obstruction (principal); N18.9 Chronic kidney disease, unspecified; K21.9 Gastro-esophageal reflux disease without esophagitis; N20.0 Calculus of kidney; Z79.899 Other long term (current) drug therapy; Z88.8 Allergy status to other drugs, medicaments and biological substances; Z91.040 Latex allergy status
CPT/HCPCS: 74177; 80048; 84703; 85025; 99284; Q9967

== ENCOUNTER 2024-09-27 13:50 | Emergency (ER) | payer OTHER ==
[~2024-09-27] VITALS: Ht 162.6 cm; Wt 49.3 kg
[~2024-09-27 13:50] MED LIST changes: +BANO25TA PO; +FAMO1TAB11 PO; +KETO120S5 TOP; +LORA-930 PO; +SPIR50TA4 PO
[2024-09-27] MEDS: IBUPROFEN 600 MG TAB PO ONE (15:02)
[2024-09-27] MEDS: ACETAMINOPHEN 500 MG TAB PO ONE (15:03)
[2024-09-27 15:42] VITALS: BP 140/88; TEMP 97.8; O2SAT 100
== END 2024-09-27 16:00 | disposition home or self-care (01) ==
LOC: M ED 13:50
DX: R51.9 Headache, unspecified (principal); Z79.899 Other long term (current) drug therapy; Z88.8 Allergy status to other drugs, medicaments and biological substances; Z91.040 Latex allergy status

== ENCOUNTER → 2024-10-08 | Outpatient (REF) | payer OTHER ==
[2024-10-08 17:27] LABS: FREE T4 1.37 NG/DL (0.89-1.76)
== END ==
LOC: M LAB REF 16:30
PROVIDERS: ATTEND Pediatrics
DX: E03.9 Hypothyroidism, unspecified (principal)

== ENCOUNTER 2024-10-29 20:32 | Emergency (ER) | payer OTHER ==
[~2024-10-29 20:32] MED LIST changes: -IBUP-1022 PO; +IBUP600T42 PO
[2024-10-29 21:27] LABS: BASO # 0.1 10^3/uL (0.0-0.2); BASO % 0.6 % (0.0-1.0); EOS # 0.1 10^3/uL (0.0-0.5); EOS % 1.0 % (0.0-3.0); LYMPH # 3.8 10^3/uL (1.5-5.0); LYMPH % 36.1 % (24.0-44.0); MONO # 0.8 10^3/uL (0.0-0.8); MONO % 7.4 % (2.0-8.0); NEUTROPHILS # 5.8 10^3/uL (1.5-8.5); NEUTROPHILS % 54.7 % (36.0-66.0); PLATELET COUNT, AUTOMATED 339 10^3/uL (150-450)
[2024-10-29] MEDS: METOPROLOL 5 MG/5 ML VIAL IV SCH (21:36)
[2024-10-29 21:51] LABS: CK-MB VALUE MASS 1.5 NG/ML (<3.6)
[2024-10-29 21:53] LABS: CALCIUM LEVEL 9.5 MG/DL (8.5-10.1); CARBON DIOXIDE LEVEL 28.0 MMOL/L (20-31); CHLORIDE LEVEL 103.0 MMOL/L (98-107); CREATININE FOR GFR 0.9 MG/DL (0.55-1.30); GLOMERULAR FILTRATION RATE 85.0 (>60); POTASSIUM SERUM 4.1 MMOL/L (3.5-5.1); SODIUM LEVEL 142.0 MMOL/L (136-145)
[2024-10-29 21:56] LABS: CPK CREATINE PHOSPHOKINASE 157.0 U/L (34-145); MB/CK RELATIVE INDEX 0.95 (< OR =4)
[2024-10-29 22:18] VITALS: BP 97/54
[2024-10-29] MEDS: METOPROLOL TART 25 MG TABLET PO ONE (22:18)
[2024-10-30 00:34] VITALS: BP 107/54; TEMP 97.6; O2SAT 96
== END 2024-10-30 00:34 | disposition home or self-care (01) ==
LOC: M ED 20:32
DX: R00.2 Palpitations (principal); K21.9 Gastro-esophageal reflux disease without esophagitis; F41.9 Anxiety disorder, unspecified; Z79.899 Other long term (current) drug therapy; Z88.8 Allergy status to other drugs, medicaments and biological substances; Z91.040 Latex allergy status
CPT/HCPCS: 71045; 80048; 82550; 82553; 84484; 85025; 93005; 93041; 94760; 99285; J0616

== ENCOUNTER → 2024-11-05 | Outpatient (CLI) | payer OTHER ==
[~2024-11-05] MED LIST changes: +PROHANCE 279.3MG/ML 5ML VIAL ONE
[2024-11-05 19:04] LABS: FREE T4 1.39 NG/DL (0.89-1.76)
[2024-11-05 19:05] LABS: THYROID PEROXIDASE ANTIBODY 37.0 U/ML (<60.0)
== END ==
LOC: M PLAIMG 14:55
PROVIDERS: ATTEND Pediatrics
DX: R90.89 Other abnormal findings on diagnostic imaging of central nervous system (principal); E03.9 Hypothyroidism, unspecified
CPT/HCPCS: 70553; 83520; 84439; 84443; 84481; 86376; A9576

== ENCOUNTER → 2024-11-07 | Outpatient (CLI) | payer OTHER ==
[~2024-11-07] MED LIST changes: -PROHANCE 279.3MG/ML 5ML VIAL ONE
[2024-11-07 20:10] LABS: FREE T4 1.46 NG/DL (0.89-1.76); LUTEINIZING HORMONE 5.7 mIU/ML
[2024-11-07 20:11] LABS: PROLACTIN 12.04 NG/ML
[2024-11-07 20:13] LABS: THYROID PEROXIDASE ANTIBODY 36.0 U/ML (<60.0)
== END ==
LOC: M LAB 17:15
PROVIDERS: ATTEND Pediatrics
DX: E23.7 Disorder of pituitary gland, unspecified (principal); E03.9 Hypothyroidism, unspecified

== ENCOUNTER → 2024-11-28 | Outpatient (CLI) | payer OTHER | LOC: M RAD 15:02 | PROVIDERS: ATTEND Pediatrics | DX: E03.9 Hypothyroidism, unspecified (principal) ==

== ENCOUNTER → 2024-12-03 | Outpatient (CLI) | payer OTHER | LOC: M LAB 08:26 | PROVIDERS: ATTEND Pediatrics | DX: R90.89 Other abnormal findings on diagnostic imaging of central nervous system (principal) ==

== ENCOUNTER → 2024-12-14 | Outpatient (REF) | payer OTHER | LOC: M LAB REF 18:49 | DX: J02.9 Acute pharyngitis, unspecified (principal) ==

== ENCOUNTER → 2024-12-27 | Outpatient (CLI) | payer OTHER ==
[2024-12-27 09:53] LABS: CALCIUM LEVEL 8.3 MG/DL (8.5-10.1); CARBON DIOXIDE LEVEL 28 MMOL/L (20-31); CHLORIDE LEVEL 102 MMOL/L (98-107); CREATININE FOR GFR 0.72 MG/DL (0.55-1.30); FREE T4 1.11 NG/DL (0.89-1.76); GLOMERULAR FILTRATION RATE > 90.0 (>60); PHOSPHORUS LEVEL 3.8 MG/DL (2.5-4.9); POTASSIUM SERUM 4.6 MMOL/L (3.5-5.1); SODIUM LEVEL 138 MMOL/L (136-145)
== END ==
LOC: M LAB 08:13
PROVIDERS: ATTEND Internal Medicine
DX: E23.7 Disorder of pituitary gland, unspecified (principal); E66.01 Morbid (severe) obesity due to excess calories; Z68.41 Body mass index [BMI] 40.0-44.9, adult

== ENCOUNTER → 2024-12-28 | Outpatient (REF) | payer OTHER | LOC: M LAB REF 10:34 | PROVIDERS: ATTEND Internal Medicine | DX: E23.7 Disorder of pituitary gland, unspecified (principal); E66.01 Morbid (severe) obesity due to excess calories; Z68.41 Body mass index [BMI] 40.0-44.9, adult ==

== ENCOUNTER → 2025-01-08 | Outpatient (CLI) | payer OTHER ==
[~2025-01-08] MED LIST changes: +ACET-1387 PO; -ACET-1593 PO
== END ==
LOC: M SLEEP HO 10:52
PROVIDERS: ATTEND Pediatrics
DX: R40.0 Somnolence (principal); E66.01 Morbid (severe) obesity due to excess calories; G47.33 Obstructive sleep apnea (adult) (pediatric)